=== PATIENT | female | born 1945 | race Caucasian/White ===

== ENCOUNTER 2017-02-10 18:02 | Emergency (ER) | payer OTHER, MEDICARE ==
[~2017-02-10] VITALS: Ht 165.1 cm; Wt 86.0 kg
[~2017-02-10 18:02] MED LIST: ASPI81TA21 PO; CIPR-255 PO; FLEC50TA20 PO; LEVO50TA PO; METR-163 PO
[2017-02-10 18:23] VITALS: Ht 165.1 cm; Wt 86.0 kg
[2017-02-10] MEDS ORDERED: CYAN100020 PO (18:37)
[2017-02-10 19:13] VITALS: BP 137/77; PULSE 60; TEMP 36.9; O2SAT 100
--- NOTE | 2017-02-11 22:24 | EMERGENCY ROOM VISIT NOTE ---
ED Visit Note First contact with patient: 18:29 Chief Complaint: I split open my right leg. History of Present Illness: Ms. Eason is a 71-year-old white female who ambulates into the ED complaining of a laceration to the right lower leg. Patient was reported less than an hour ago she was attempting to get in her car in a parking lot. The car next to her parked exceptionally close and she had to squeeze in the door. When she did she struck her right lower leg on the door and sustained a laceration. She did control bleeding but did not wash the wound prior to arrival at the hospital. Currently she describes a sharp throbbing pain in the area of her laceration. She rates her discomfort 7/10. Her pain is nonradiating. Her pain worsens with palpation. She has not identified any alleviating factors related to the pain. She has not taken any medications for pain prior to arrival at the hospital. She denies any associated symptoms including knee pain, bony lower leg pain, ankle pain, leg/foot weakness/numbness/tingling. Review of Systems: As noted above in history of present illness. Past Medical History: Atrial fibrillation, melanoma, asthma, bronchitis, pneumonia, diverticulitis, kidney stones, hypothyroidism, status post tonsillectomy, appendectomy and surgical repair of the left arm fracture. Current Medications: Vitamins, flecainide, Synthroid, Ecotrin. Allergies to Medications: Bacitracin, hyoscyamine, ibuprofen, latex, Aleve, baclofen, latex. Social History: Patient is currently employed; she feels safe in her home environment; she denies tobacco and alcohol use. Tetanus Immunization Status: Patient reports up-to-date. Physical Examination: Vital Signs: Date Time Temp Pulse Resp B/P Pulse Ox O2 Delivery O2 Flow Rate FiO2 02/10/17 19:13 36.9 60 18 137/77 100 02/10/17 19:07 60 18 137/77 100 Room Air 02/10/17 18:23 36.9 64 18 135/74 99 Room Air GENERAL: 71-year-old female in mild distress due to pain, nontoxic-appearing, afebrile and hemodynamically stable. NEUROLOGICAL: Awake, alert and oriented to person, place and time. Answering questions appropriately and following commands. Normal gait. Good hand eye coordination. No focal motor or sensory deficits. SKIN: Warm, dry and pink. Right Lower Leg: Over the distal half of the leg the patient has a U-shaped skin tear laceration that is superficial measuring approximately 4 cm in length. No active bleeding. RIGHT LOWER EXTREMITY: No gross bony deformity. No tenderness throughout the knee, tibia or ankle. Mild tenderness over her laceration. Full range of motion in flexion and extension of the knee and plantar flexion and dorsiflexion of the ankle. Throughout the foot the skin was warm and pink and capillary refill is brisk. She is able to distinguish light sensations through all dermatomes. ED Course: Patient is assessed as noted above. Wound Repair: Complexity: Basic Verbal consent was obtained after the risks and benefits were explained. The skin was prepped with betadine and a sterile field set. The wound was explored for foreign bodies and none found. Copious irrigation was performed using sterile saline. With direct pressure the bleeding subsided. Debridement was not performed. The wound edges were approximated using Steri-Strips. Hemostasis and excellent approximation was achieved. Dry sterile dressing applied. No complications and the patient tolerated the procedure well. Patient was educated about tonight's findings and instructed on she treatment plan; she verbalizes understanding and agreement with this plan. Clinical Impression: Laceration of the skin tear right lower leg. Disposition: Patient discharged home in stable condition; prior to departure he was reassessed and subjectively reported pain free. Plan: Comfort measures, wound care, and signs of infection were discussed with the patient. Patient was encouraged to follow-up with personal physician or return emergency department for any signs of infection or any new/concerning symptoms.
== END 2017-02-10 19:14 | disposition home or self-care (01) ==
LOC: C.EDB 18:03 → C.EDD 19:14
DX: S81.801A Unspecified open wound, right lower leg, initial encounter (principal); W22.8XXA Striking against or struck by other objects, initial encounter

== ENCOUNTER → 2017-04-13 | Outpatient (CLI) | payer OTHER, MEDICARE ==
[~2017-04-13] MED LIST changes: -CIPR-255 PO; +CYAN100020 PO; -METR-163 PO
== END | disposition home or self-care (01) ==
LOC: C.PAPS 15:52
PROVIDERS: ATTEND Obstetrics & Gynecology
DX: Z12.4 Encounter for screening for malignant neoplasm of cervix (principal)

== ENCOUNTER → 2017-05-08 | Outpatient (CLI) | payer OTHER, MEDICARE ==
--- NOTE | 2017-05-08 11:13 | DIAGNOSTIC IMAGING REPORT ---
MRI LEFT SHOULDER NO CONTRAST CLINICAL HISTORY: M25.512 left shoulder pain COMPARISON STUDY: No previous studies for comparison. FINDINGS: Imaging was performed in the paracoronal sagittal and axial planes. There are no areas of marrow replacement to indicate neoplasm. There are no areas of marrow replacement to indicate occult fracture or bone bruise. There is no evidence of rotator cuff tear. There are moderately advanced arthritic changes present within the glenohumeral joint with joint space narrowing cartilaginous loss and osteophyte formation. There is equivocal loose body within the inferior joint. There is no evidence of bicipital tendon subluxation, or tear. IMPRESSION: 1. 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 No evidence of rotator cuff tear. Electronically signed by: Junaid Luong M.D. 05/08/2017 11:12 AM Dictated Date/Time: 05/08/2017 11:09 AM
== END | disposition home or self-care (01) ==
LOC: C.MRI 09:22
PROVIDERS: ATTEND Orthopaedic Surgery Sports Medicine
DX: M25.512 Pain in left shoulder (principal); M19.012 Primary osteoarthritis, left shoulder

== ENCOUNTER → 2017-05-12 | Outpatient (CLI) | payer OTHER, MEDICARE ==
[2017-05-12 10:58] LABS: ALT/SGPT 21 U/L (12-78); AST/SGOT 14 U/L (15-37); BLOOD UREA NITROGEN 15 mg/dl (7-18); BUN/CREATININE RATIO 17.7 (10-20); CALCIUM 9.1 mg/dl (8.5-10.1); CARBON DIOXIDE 29 mmol/L (21-32); CHLORIDE 106 mmol/L (98-107); CREATININE 0.86 mg/dl (0.60-1.20); GLUCOSE 79 mg/dl (70-99); POTASSIUM 3.8 mmol/L (3.5-5.1); SODIUM 141 mmol/L (136-145)
[2017-05-12 11:09] LABS: ALKALINE PHOSPHATASE 110 U/L (45-117); CHOLESTEROL 226 mg/dl (0-200); CHOLESTEROL/HDL RATIO 3.3; HDL CHOLESTEROL 68 mg/dl; LDL CHOLESTEROL CALCULATED 141 mg/dl; TRIGLYCERIDES 85 mg/dl (0-150); VERY LOW DENSITY LIPOPROT CALC 17 mg/dl
--- NOTE | 2017-05-19 09:55 | CODING QUERY MEDICAL NECESSITY ---
SUPPORTING DIAGNOSIS NEEDED A supporting diagnosis is required for the test/procedure performed on this patient in order for us to be reimbursed by the patient's insurance. Please provide a supporting diagnosis for the following test/procedure listed below next to the test name along with your signature. *If there is no additional diagnosis for this patient that would support the following test/procedure please document that below next to the test/procedure. Test(s)/Procedure(s) that require a supporting diagnosis: * VITAMIN B12 DIAGNOSIS: * VITAMIN D, 25- HYDROXY DIAGNOSIS: Provider Signature: Date: Thank you Elena Barrett [employer] Once completed, please kindly fax back to [phone] For questions please call [phone]
== END | disposition home or self-care (01) ==
LOC: C.LAB 08:54
PROVIDERS: ATTEND Internal Medicine
DX: E78.5 Hyperlipidemia, unspecified (principal); E53.8 Deficiency of other specified B group vitamins; E55.9 Vitamin D deficiency, unspecified

== ENCOUNTER → 2017-05-20 | Outpatient (CLI) | payer OTHER, MEDICARE ==
--- NOTE | 2017-05-20 16:08 | MAMMOGRAPHY REPORT ---
BILATERAL DIGITAL SCREENING MAMMOGRAM WITH CAD: 05/20/2017 CLINICAL HISTORY: Routine screening. Patient has no complaints. TECHNIQUE: Bilateral CC and MLO views were obtained. Current study was also evaluated with a Computer Aided Detection (CAD) system. COMPARISON: Comparison is made to exams dated: 04/17/2016 mammogram, 03/22/2015 mammogram, 03/20/2014 m ammogram, 03/11/2013 mammogram, 03/02/2012 mammogram, and 03/04/2011 mammogram - [facility] enter. BREAST COMPOSITION: There are scattered areas of fibroglandular density in both breasts. 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 A few other scattered and grouped stable microcode calcifications bilaterally. No new suspicious mass, architectural distortion or cluster of microcalcifications is seen. IMPRESSION: ACR BI-RADS CATEGORY 1: NEGATIVE There is no mammographic evidence of malignancy. A 1 year screening mammogram is recommended. The pa tient will receive written notification of the results. Approximately 10% of breast cancers are not detected with mammography. A negative mammographic report should not delay biopsy if a clinically suggestive mass is present. Stephanie Moore M.D. ay/:05/20/2017 14:54:43 Production Engineer: Dee HOWELL)(Abdoulaye)(BD), [facility] letter sent: Normal 1/2 BI-RADS Code: ACR BI-RADS Category 1: Negative
== END | disposition home or self-care (01) ==
LOC: C.MAMM 14:23
PROVIDERS: ATTEND Obstetrics & Gynecology
DX: Z12.31 Encounter for screening mammogram for malignant neoplasm of breast (principal)

== ENCOUNTER → 2017-06-11 | Outpatient (CLI) | payer OTHER, MEDICARE ==
--- NOTE | 2017-06-11 09:29 | DIAGNOSTIC IMAGING REPORT ---
RIGHT HIP UNILATERAL 2 VIEWS CLINICAL HISTORY: 72 years-old Female presenting with RIGHT LEG PAIN Right. TECHNIQUE: Frontal and lateral views of the right hip were obtained. COMPARISON: Correlation made to CT of the abdomen and pelvis from September 11, 2016. FINDINGS: Right hip joint congruent. No significant degenerative change. No acute fracture or malalignment. Visualized portions of the pelvis unremarkable. IMPRESSION: 1. No acute osseous injury of the right hip. Electronically signed by: Alexander Orellana M.D. 06/11/2017 9:28 AM Dictated Date/Time: 06/11/2017 9:25 AM
== END | disposition home or self-care (01) ==
LOC: C.RADBC 09:10
PROVIDERS: ATTEND Physician Assistant Medical
DX: M79.604 Pain in right leg (principal)

== ENCOUNTER → 2017-06-11 | Outpatient (CLI) | payer OTHER, MEDICARE ==
--- NOTE | 2017-06-11 12:03 | DIAGNOSTIC IMAGING REPORT ---
RIGHT VENOUS DOPP LOWER EXT UNILAT CLINICAL HISTORY: 72 years-old Female presenting with M79.606 Acute leg pain Right. TECHNIQUE: Real-time grayscale and color and spectral Doppler ultrasound imaging of the veins of the right lower extremity was performed. Compression and augmentation were also utilized. COMPARISON: None. FINDINGS: Right: Common femoral vein: Patent. Femoral vein: Patent. Greater saphenous vein: Patent. Popliteal vein: Patent. Calf veins: Patent. Other: None. IMPRESSION: No evidence of deep venous thrombosis. Electronically signed by: Alexander Orellana M.D. 06/11/2017 12:01 PM Dictated Date/Time: 06/11/2017 12:00 PM
== END | disposition home or self-care (01) ==
LOC: C.ULTR 10:07
PROVIDERS: ATTEND Physician Assistant Medical
DX: M79.604 Pain in right leg (principal)

== ENCOUNTER → 2017-08-17 | Outpatient (CLI) | payer OTHER, MEDICARE ==
--- NOTE | 2017-08-17 15:21 | DIAGNOSTIC IMAGING REPORT ---
R LOWER EXTREMITY WITHOUT CT DOSE: 603.43 mGycm HISTORY: Mass R22.41 Thigh lump, right Thursday's are good (08/11 only one to avoid TECHNIQUE: Multiaxial CT images of the right thigh were performed and reformatted in the sagittal and coronal plane without the use of contrast. A dose lowering technique was utilized adhering to the principles of ALARA. COMPARISON: 09/11/2016 FINDINGS: No fracture or dislocation. Soft tissues are unremarkable. All major muscle bundles are unremarkable. Density characteristics of the subcutaneous fat are within normal limits. No abnormal mass or collection is appreciated. No abnormal adenopathy. Osseous structures are unremarkable. IMPRESSION: Negative study The above report was generated using voice recognition software. It may contain grammatical, syntax or spelling errors. Electronically signed by: Ronen Weiss M.D. 08/17/2017 3:20 PM Dictated Date/Time: 08/17/2017 3:15 PM
== END | disposition home or self-care (01) ==
LOC: C.CTS 14:37
PROVIDERS: ATTEND Internal Medicine
DX: R22.41 Localized swelling, mass and lump, right lower limb (principal)

== ENCOUNTER → 2017-10-27 | Outpatient (CLI) | payer OTHER, MEDICARE ==
[2017-10-27 13:48] LABS: BASO % 0.4 %; BASO ABS # 0.03 K/uL (0-0.2); COMPLETE YES; EOS % 1.1 %; HEMATOCRIT 49.3 % (37-47); IG% 0.1 %; LYMPH % 30.2 %; LYMPH ABS # 2.24 K/uL (1.2-3.4); MEAN CORPUSCULAR HEMOGLOBIN 29.6 pg (25-34); MEAN CORPUSCULAR HGB CONC 32.9 g/dl (32-36); MEAN PLATELET VOLUME 10.9 fL (7.4-10.4); NEUT % 59.2 %; PLATELET COUNT 305 K/uL (130-400); RED BLOOD COUNT 5.48 M/uL (4.2-5.4); WHITE BLOOD COUNT 7.42 K/uL (4.8-10.8)
[2017-10-27 14:00] LABS: ALT/SGPT 18 U/L (12-78); AST/SGOT 11 U/L (15-37); BLOOD UREA NITROGEN 16 mg/dl (7-18); BUN/CREATININE RATIO 17.5 (10-20); CALCIUM 9.6 mg/dl (8.5-10.1); CARBON DIOXIDE 30 mmol/L (21-32); CHLORIDE 104 mmol/L (98-107); CREATININE 0.93 mg/dl (0.60-1.20); GLUCOSE 92 mg/dl (70-99); POTASSIUM 3.9 mmol/L (3.5-5.1); SODIUM 137 mmol/L (136-145)
[2017-10-27 14:03] LABS: ALKALINE PHOSPHATASE 121 U/L (45-117)
== END | disposition home or self-care (01) ==
LOC: C.LABBC 10:35
PROVIDERS: ATTEND Nurse Practitioner Adult Health
DX: R10.13 Epigastric pain (principal); R11.0 Nausea

== ENCOUNTER → 2017-11-04 | Outpatient (CLI) | payer OTHER, MEDICARE ==
[~2017-11-04] MED LIST changes: +OPTIRAY 320 IV PRN
--- NOTE | 2017-11-04 12:20 | DIAGNOSTIC IMAGING REPORT ---
ABDOMEN AND PELVIS CT WITH IV AND ORAL CONTRAST CT DOSE: 627.66 mGy.cm HISTORY: K57.92 Acute tojnebphffmtsdZ15.30 Abdominal pain, lower TECHNIQUE: Multiaxial CT images of the abdomen and pelvis were performed following the use of intravenous and oral contrast. A dose lowering technique was utilized adhering to the principles of ALARA. COMPARISON STUDY: Abdomen and pelvis CT 09/11/2016. FINDINGS: Extensive colonic diverticulosis. Mild thickening of the mid sigmoid colon without surrounding fat stranding. Therefore, this favors muscular hypertrophy. No pericolonic fat stranding to suggest acute diverticulitis at this time. No evidence for bowel obstruction. The appendix is not identified and is likely surgically absent. A 2 cm diverticulum at the second portion of the duodenum. The liver, gallbladder, pancreas, spleen, and adrenal glands, are unremarkable. Small bilateral peripelvic renal cysts. No hydronephrosis. The kidneys enhance normally. No retroperitoneal lymphadenopathy. The uterus and ovaries are unremarkable. Bladder is completely decompressed which limits evaluation. There are suggestion of mild fat stranding surrounding the bladder. The lung bases are clear. IMPRESSION: 1. Extensive colonic diverticulosis. No CT evidence for acute diverticulitis at this time. 2. No evidence for bowel obstruction. 3. Bladder is completely decompressed which limits evaluation. However, there is suggestion of mild fat stranding surrounding the bladder. This may represent a cystitis. Recommend correlation with urinalysis. Electronically signed by: Thompson Moses M.D. 11/04/2017 12:19 PM Dictated Date/Time: 11/04/2017 12:11 PM
== END | disposition home or self-care (01) ==
LOC: C.CTS 09:12
PROVIDERS: ATTEND Nurse Practitioner Adult Health
DX: R10.30 Lower abdominal pain, unspecified (principal); K57.30 Diverticulosis of large intestine without perforation or abscess without bleeding; R93.41 Abnormal radiologic findings on diagnostic imaging of renal pelvis, ureter, or bladder; Z87.19 Personal history of other diseases of the digestive system

== ENCOUNTER → 2017-11-05 | Outpatient (CLI) | payer OTHER, MEDICARE ==
[~2017-11-05] MED LIST changes: -OPTIRAY 320 IV PRN
[2017-11-05 14:57] LABS: MANUAL MICROSCOPIC REQUIRED? NO; REVIEW REQ? YES; URINE APPEARANCE TURBID (CLEAR); URINE COLOR DK YELLOW; URINE EPITHELIAL CELL AUTO >30 /lpf (0-5); URINE NITRITE NEG (NEG); URINE SPECIFIC GRAVITY 1.038 (1.000-1.030); UROBILINOGEN NEG (NEG)
[2017-11-05 14:59] LABS: URINE BILIRUBIN NEG (NEG)
[2017-11-05 15:13] LABS: URINE MUCUS PRESENT (NONE PRSENT)
== END | disposition home or self-care (01) ==
LOC: C.LABBC 11:03
PROVIDERS: ATTEND Nurse Practitioner Adult Health
DX: R10.30 Lower abdominal pain, unspecified (principal)

== ENCOUNTER → 2017-11-27 | Outpatient (CLI) | payer OTHER, MEDICARE ==
[~2017-11-27] MED LIST changes: +ASPI-319 PO; -ASPI81TA21 PO
--- NOTE | 2017-11-27 15:57 | DIAGNOSTIC IMAGING REPORT ---
R SHOULDER MIN 2 VIEWS ROUTINE CLINICAL HISTORY: 72 years-old Female presenting with PAIN. TECHNIQUE: Internal rotation, external rotation, and Grashey views of the right shoulder were obtained. COMPARISON: None. FINDINGS: No acute fracture or malalignment. Glenohumeral and acromioclavicular joints congruent. No deformity of the humeral head. Possible small osteophyte at the inferior humeral head. No significant degenerative change of the acromioclavicular joint. No radiographic soft tissue abnormality. Visualized portion of the right hemithorax normal. IMPRESSION: No acute osseous injury of the right shoulder. Possible mild degenerative changes of the glenohumeral joint. Electronically signed by: Alexander Orellana M.D. 11/27/2017 3:56 PM Dictated Date/Time: 11/27/2017 3:54 PM
[2017-11-27 16:41] LABS: BASO % 0.4 %; BASO ABS # 0.03 K/uL (0-0.2); EOS % 1.1 %; EOS ABS # 0.09 K/uL (0-0.5); HEMOGLOBIN 15.1 g/dL (12.0-16.0); IG# 0.01 K/uL (0.00-0.02); LYMPH % 34.8 %; LYMPH ABS # 2.75 K/uL (1.2-3.4); MEAN CELL VOLUME 89.5 fL (80-100); MEAN CORPUSCULAR HGB CONC 33.6 g/dl (32-36); MEAN PLATELET VOLUME 10.1 fL (7.4-10.4); MONO ABS # 0.71 K/uL (0.11-0.59); NEUT % 54.6 %; NEUT ABS # 4.31 K/uL (1.4-6.5); PLATELET COUNT 299 K/uL (130-400); RED CELL DISTRIBUTION WIDTH CV 14.5 % (11.5-14.5); RED CELL DISTRIBUTION WIDTH SD 47.1 fL (36.4-46.3)
== END | disposition home or self-care (01) ==
LOC: C.RADBC 15:11
PROVIDERS: ATTEND Physician Assistant Medical
DX: M25.511 Pain in right shoulder (principal); R74.8 Abnormal levels of other serum enzymes; R79.89 Other specified abnormal findings of blood chemistry

== ENCOUNTER → 2017-12-06 | Outpatient (CLI) | payer OTHER, MEDICARE ==
[~2017-12-06] MED LIST changes: -ASPI-319 PO; +ASPI81TA21 PO
--- NOTE | 2017-12-07 06:20 | PAP/PSG TECHNICIAN REPORT ---
[facility] Electrical Electronics Technician Polysomnogram Report Study name: None Report date: 12/07/2017 Study date: 12/06/2017 Referring Physician: Samantha Squires PA-C Name: ENOCH PADGETT Interpreting Physician: Ananth Vogt D.O. Date of : 1945 Electrical Electronics Technician: Tae Guzmán RPSGT. Sex: Female Age: 72 StudyType: PSG Weight: 194 lbs 34 cm Height: 72 years, Height 5' 6" Neck Circum: BMI: 31.31 Medications: OMEPRAZOLE 20 MG, FLECAINIDE ACETATE 50 MG, LEVOTHYROXINE SODIUM 50 MCG, ASPIRIN 81 MG, Patient History PATIENT HAS HISTORY OF A-FIB, WITNESSED APNEAS AND EXCESSIVE DAYTIME SLEEPINESS. SHE IS HERE TODAY FOR AN EVALUATION FOR MAYKEL. ESS = 14 RM 8 Parameters Monitored NPSG: E1-M2, E2-M1, Fp1-M2, Fp2-M1, F3-M2, F4-M2, F4-M1, C3-M2, C4-M2, C4-M1, O1-M2, O2-M2, O2-M1, T3-M2, T4-M1, P3-M2, P4-M1, CHIN1, CHIN2, HR, EKG, Legs, PFLOW, SNOR, FLOW, CFLOW, Tidal Volume, THOR, ABDO, SpO2, PLTH, CPRESS, ETCO2 Wave, ETCO2, pH Sleep Architecture Sleep Stages Time at Lights Off 8:59:21 PM STAGES Time (min.) TST (%) Time at Lights On 5:57:21 AM Wake 133.0 -- Total Recording Time (TRT) 538.50 min. N1 14.0 3 Total Sleep Period (TSP) 514.0 min. N2 228.0 56 Total Sleep Time (TST) 405.0min. N3 44.5 11 Awake Time 133.5 min. REM 118.5 29 Wake after Sleep Onset 114.5 min. Sleep Efficiency (SE) 75 % Sleep Onset Latency (RAFA) 18.5 min. Number of Stage 1 Shifts None Awakenings 17 Stage Changes 70 Number of REM periods 6 REM 118.5 29 REM Latency 106.5 min. NREM 286.5 71 Body Position Analysis Supine Right Left Side Prone Vertical Total Sleep Time (min.) 377.6 0.0 121.0 121.00 0.0 0.0 Total Sleep Time (%) 70% 0% 30% 30 0% N/A% Total Sleep Time REM (min.) 78.5 0.0 40.0 None 0.0 0.0 Total Sleep Time NREM (min.) 205.5 0.0 81.0 None 0.0 0.0 Intermittent Wake (min.) 93.6 0.0 39.4 None 0.0 0.0 Total Sleep Period (%) 70% None None None None None Arousals Myoclonus (PLM) * Events Count Index Events Count Index Spontaneous 35 5 Events Awake (PLMW) 71 32.0 Respiratory 6 0.9 Events Asleep w/ Arousal (PLMA) 1 0.1 PLM 1 0 Events Asleep w/o Arousal (PLMS) 13 1.9 Snoring 11 2 Total Asleep 14 2.1 Total 52 8 Total 85 9 Respiratory Analysis * CA OA MA CH H RERA Total Count 0 0 0 0 73 3 73 Index 0.0 0.0 0.0 0 10.8 0 11.3 Mean Duration 0.0 0.0 0.0 0.00 25.3 18.5 25.0 Longest Duration 0.0 0.0 0.0 0.00 0.0 20.7 56.0 Respiratory Event Summary Total Supine ~Supine Right Left Prone REM NREM Apneas Count 0 0 0 N/A 0 N/A 0 0 Index 0.0 0 0 N/A 0.0 N/A 0 0 Hypopneas (4% Desat) Count 73 68 5 N/A 5 N/A 64 9 Index 10.8 14.4 2 N/A 2.5 N/A 32.4 1.9 Apneas & All Hypopneas Count 73 68 5 N/A 5 N/A 64 9 Index 10.8 14 2 N/A 2 N/A 32.4 1.9 Respiratory Events (Manager Emergency Department+All Hyp+RERA) Count 73 70 6 N/A 6 N/A 64 9 Index 11.3 15 3 N/A 3.0 N/A 32.9 2.3 Respiratory Related Arousal Count 6 70 1 N/A 1 N/A 3 3 Index 0.9 1 0 N/A 0 N/A 2 1 Snoring Analysis Supine Right Left Prone REM NREM Total Snore duration 14.0 min Snores count 408 N/A 318 N/A 301 425 726 Snore mean duration 1.2 Sec Snores index 86 N/A 158 N/A 152.4 89.0 107.6 TST with snoring (%) 3.5% Desaturation Event Summary: Minimum %SpO2 Event Count Mean/Min/Max Duration(sec.) Desaturation Index % Time In Bed > 90 73 35.7 / 13.3 / 80.6 8.5 96.5 86 - 90 1 14.9 / 14.9 / 14.9 4.0 2.8 81 - 85 0 N/A 0.0 0.6 76 - 80 0 N/A 0.0 0.1 71 - 75 0 N/A 0.0 0.0 66 - 70 0 N/A 0.0 0.0 61 - 65 0 N/A 0.0 0.0 56 - 60 0 N/A 0.0 0.0 51 - 55 0 N/A 0.0 0.0 < 50 0 N/A 0.0 0.0 Total REM NREM Awake <50% 0.0 min. 0.0 min. 0.0 min. 0.0 min. 51 - 60% 0.1 min. 0.0 min. 0.0 min. 0.1 min. 61 - 70% 0.0 min. 0.0 min. 0.0 min. 0.0 min. 71 - 80% 0.3 min. 0.3 min. 0.0 min. 0.0 min. 81 - 90% 17.9 min. 16.7 min. 0.2 min. 1.0 min. 91 - 100% 513.1 min. 101.5 min. 286.3 min. 125.4 min. Average 94 93 94 93 Minimum SpO2 60 78 89 60 Desaturation Event Index 8.3 31.9 1.9 0.9 # Desat. Events below 89% 31 31 N/A N/A Time(%) with Saturation below 89% 1.9 1.8 0.0 0.1 Time(min.) with Saturation below 89% 10.0 9.7 0.0 0.3 Time (mins) REM (mins) NREM (mins) % of TST SpO2 Below 90% 44 42 N2 3.1 SpO2 Below 88% 19 0 0 2 Heart Rate Analysis Min (bpm) Max (bpm) Average (bpm) Awake 49 73 57 NREM 47 68 55 REM 47 69 54 Overall 47 69 55 Supplemental O2 Values Minimum O2 level: None Value Start Time End Time Electrical Electronics Technician Comments Mrs. Avina slept in the left and supine positions. PAC's noted. Leg movements noted. No bruxism noted. Snoring was noted and scored as a 2 on a scale of 1 through 5. (0=no snoring, 5=snoring loud enough to be heard through a closed door or down the liu way) Mrs. Padgett awoke to use the restroom 1 time during the night. Mrs. Padgett stated I slept as well as I do when I am in my own bed. The final report will be interpreted and signed by a sleep physician. The completed physician report will then be placed in the patient medical record. Therapy (cm H2O) 0 TIB (min.) 538.0 TST (min.) 405.0 Sleep Onset (min.) 18.5 REM Onset From Sleep (min.) 106.5 Sleep Efficiency % 75 Wakefulness (%) 25 Wakefulness (min.) 133.5 NREM 1 (%) 3 NREM 1 (min.) 14.0 NREM 2 (%) 56 NREM 2 (min.) 228.0 NREM 3 (%) 11 NREM 3 (min.) 44.5 REM (%) 29 REM (min.) 118.5 # Arousals 52 Arousal Index 8 # Snore 726 Snore Index 107.6 AHI 10.8 AHI Supine 14 AHI Non-Supine 2 NREM AHI 1.9 REM AHI 32.4 RDI 11.3 # Obstructive Apnea 0 # Central Apnea 0 # Mixed Apnea 0 # Hypopneas 73 RERAs 3 Total Respiratory Events 76 Time Below SpO2 89% (min.) 9.7 Mean NREM SpO2 (%) 94 Mean REM SpO2 (%) 93 Mean Sleep SpO2 (%) 94 Min NREM SpO2 (%) 89 Min REM SpO2 (%) 78 Position Supine (min.) 377.6 Position Non-supine (min.) 121.0 LM Index Sleep 2.1 LM Index NREM 1.3 LM Index REM 4.1 Mean Heart Rate (bpm) 55 Min Heart Rate (bpm) 47
--- NOTE | 2017-12-08 15:50 | Sleep Study ---
Sleep Study Report Date of Service: 12/06/2017 Sleep Study Report CLINICAL DATA: The patient is a 72-year-old female with a BMI of 31.3. She has a history of atrial fibrillation. Her symptoms include disturbed nocturnal sleep, observed apneas, and excessive daytime tiredness. Her [place] Sleepiness Scale score was 14. She is referred by Samantha Squires PA-C for a diagnostic polysomnography. SLEEP ARCHITECTURE: The total sleep period was 514 minutes. The total sleep time was 405 minutes. The sleep efficiency was moderately reduced to 75 percent. The sleep latency was top normal at 18.5 minutes. Wake after sleep onset was increased to 114.5 minutes. The REM latency was 106.5 minutes. Sleep consisted of stage N1 3 percent, stage N2 56 percent, stage N3 11 percent, stage REM 29 percent. AROUSAL DATA: The patient had a total of 52 arousals including 35 spontaneous arousals, 6 respiratory arousals, 1 PLM arousal, and 11 snoring arousals. The arousal index was 8. PLM DATA: The patient had a total of 14 periodic limb movements of sleep for a PLM index of 2.1. There was only 1 arousal associated with limb movements for a PLM arousal index of 0.1. EKG: The underlying cardiac rhythm appeared to be sinus. It was difficult at times to identify P-waves. PACs were noted. I cannot entirely exclude brief areas of atrial fibrillation. The cardiac rates 47-69 beats per minute with an average of 55 beats per minute. RESPIRATORY DATA: The patient had a total of 73 respiratory events, all hypopneas. Hypopneas were scored according to the 4 percent desaturation rule. The mean duration of the hypopneas was 25.3 seconds. She also had 3 RERAs. The apnea-hypopnea index was mildly elevated at 10.8 events per hour. This reflects mild obstructive sleep apnea. OXIMETRY DATA: The average saturation for the night was 94 percent. The minimum saturation recorded was 60 percent. This clearly was artifactual. The true minimum saturation was 79 percent. There was a total of 10 minutes with saturations less than 89 percent. MACHINE TRACER COMMENTS: The patient slept in the left and supine positions. PACs noted. Leg movements noted. No bruxism noted. Snoring was noted and scored as a 2 on a scale of 1 through 5. The patient awaken to use the restroom 1 time during the night. IMPRESSIONS: 1. Mild obstructive sleep apnea COMMENTS: The patient had a decreased sleep efficiency. This was mainly related to an episode of wake from 2:12 a.m. until 3:38 a.m.. Otherwise her sleep was well consolidated. She had mild sleep apnea. The events occurred mainly during REM sleep. The REM apnea-hypopnea index was elevated at 32.4. These 2 episodes were also associated with decreases in oxygen saturations. The patient has modest symptoms and there is a history of atrial fibrillation. Thus treatment would be advised. RECOMMENDATIONS: 1. It is suggested that the patient be treated with nasal CPAP therapy. This could be accomplished either by referral to the Sleep Lab for an in-lab CPAP titration study, or the alternative being treatment with auto CPAP. 2. Weight loss is advised in light of the elevation of body mass index at 31.3. 3. If possible the patient should avoid sleeping in the supine position. During this study she spent much of the night supine and the apnea-hypopnea index supine was 14. Typically there is more sleep apnea and snoring in the supine position. Copies To 1: Ananth Vogt DO; Samantha Squires PAC
== END | disposition home or self-care (01) ==
LOC: C.NEUR 20:00
PROVIDERS: ATTEND Physician Assistant Medical
DX: G47.33 Obstructive sleep apnea (adult) (pediatric) (principal); G47.10 Hypersomnia, unspecified

== ENCOUNTER → 2018-06-14 | Outpatient (CLI) | payer OTHER ==
[~2018-06-14] MED LIST changes: +ASPI-319 PO; -ASPI81TA21 PO
--- NOTE | 2018-06-14 11:44 | DIAGNOSTIC IMAGING REPORT ---
KUB HISTORY: Follow-up study in a patient with history of nephrolithiasis N20.0 [id number] COMPARISON: CT abdomen and pelvis 11/04/2017 FINDINGS: The bowel gas pattern is non-obstructive. Round calcification of the left upper abdomen, 10 mm suggests peripherally calcified splenic arterial aneurysm. Calcifications of the pelvis suggest phleboliths. There is no organomegaly. No renal calculi. No ureteral calculi. No pneumoperitoneum or pneumatosis. No fracture. Degenerative changes of the spine, pelvis and hips. IMPRESSION: 1. No renal or ureteral calculi identified. 2. Nonobstructive bowel gas pattern. 3. 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 Electronically signed by: Thad Flynn M.D. 06/14/2018 11:43 AM Dictated Date/Time: 06/14/2018 11:42 AM
== END | disposition home or self-care (01) ==
LOC: C.RAD 11:07
PROVIDERS: ATTEND Urology
DX: N20.0 Calculus of kidney (principal); I72.8 Aneurysm of other specified arteries

== ENCOUNTER → 2018-06-15 | Outpatient (CLI) | payer OTHER | END | disposition home or self-care (01) | LOC: C.LABSPEC 12:26 | PROVIDERS: ATTEND Urology | DX: R82.71 Bacteriuria (principal) ==

== ENCOUNTER → 2018-07-06 | Outpatient (CLI) | payer OTHER ==
[~2018-07-06] MED LIST changes: +OPTIRAY 320 IV PRN
--- NOTE | 2018-07-06 10:31 | DIAGNOSTIC IMAGING REPORT ---
ABD WITH IV AND ORAL CONT (CT) CLINICAL HISTORY: 73 years-old Female presenting with I72.8 Splenic artery aneurysm. TECHNIQUE: Multidetector CT of the abdomen was performed after the administration of oral and intravenous contrast. IV contrast: 93 mL of Optiray 320. A dose lowering technique was used consistent with the principles of ALARA (as low as reasonably achievable). COMPARISON: 11/04/2017. CT DOSE (mGy.cm): The estimated cumulative dose is 280.67 mGy.cm. FINDINGS: Contact Lens Curve Grinder topogram: Unremarkable. Lung bases: Minimal basilar opacities, likely atelectasis. Multichamber enlargement of the heart. No pericardial or pleural effusion. Liver: Normal morphology. No liver lesion allowing for the early phase of contrast. Hepatic veins not yet opacified. Otherwise patent hepatic vasculature. Conventional hepatic arterial anatomy. Biliary: No intrahepatic or extrahepatic biliary ductal dilatation. Fundal adenomyomatosis may be present. Gallbladder otherwise normal. Pancreas: Normal. Spleen: Normal. Adrenal glands: Normal. Kidneys and ureters: Normal. No hydronephrosis. Bowel: Diverticulosis of the descending colon. No bowel obstruction. Peritoneal cavity: No free fluid or intraperitoneal gas. Lymph nodes: No enlarged lymph nodes in the abdomen. Vasculature: Atherosclerosis of the normal caliber abdominal aorta. IVC patent. Redemonstration of the 8 mm splenic arterial aneurysm, which arises from the posterior aspect of the mid to distal splenic artery and opacifies with contrast (series 3 image 96). This is unchanged from prior. No new aneurysm. Splenic vein patent. Abdominal wall: Asymmetric breast parenchyma in the lower outer quadrant of the right breast (series 3 image 61). Musculoskeletal: Normal. IMPRESSION: 1. Stable subcentimeter splenic arterial aneurysm. 2. No acute intra-abdominal pathology. 3. Diverticulosis. 4. Asymmetric breast parenchyma in the lower outer quadrant of the right breast. Dedicated mammographic correlation recommended. Electronically signed by: Alexander Orellana M.D. 07/06/2018 10:29 AM Dictated Date/Time: 07/06/2018 10:21 AM
== END | disposition home or self-care (01) ==
LOC: C.CTS 09:00
PROVIDERS: ATTEND Internal Medicine
DX: I72.8 Aneurysm of other specified arteries (principal); K57.90 Diverticulosis of intestine, part unspecified, without perforation or abscess without bleeding; N64.9 Disorder of breast, unspecified

== ENCOUNTER 2023-10-17 12:57 | Inpatient (IN) ==
[2023-10-17] MEDS ORDERED: SODIUM CHLORIDE 0.9% 500 ML IV STA (13:29)
[2023-10-17 13:49] LABS: Basophils # (auto) 0.06 K/uL (0.00-0.20); Basophils % (auto) 0.6 %; Eosinophils # (auto) 0.06 K/uL (0.00-0.50); Eosinophils % (auto) 0.6 %; Hematocrit (blood only) 45.6 % (37.0-47.0); Hemoglobin 15.3 g/dl (12.0-16.0); Immature Granulocytes # (auto) 0.02 K/uL (0.01-0.20); Immature Granulocytes % (auto) 0.2 %; Lymphocytes # (auto) 2.07 K/uL (1.20-3.40); Lymphocytes % (auto) 22.2 %; Mean Corpuscular Hemoglobin 29.8 pg (25.0-34.0); Mean Corpuscular Hgb Conc 33.6 g/dL (32.0-36.0); Mean Corpuscular Volume 88.9 fL (80.0-100.0); Mean Platelet Volume 10.1 fL (9.4-12.4); Monocytes # (auto) 0.86 K/uL (0.11-0.59); Monocytes % (auto) 9.2 %; Neutrophils # (auto) 6.27 K/uL (1.40-6.50); Neutrophils % (auto) 67.2 %; Platelet Count 268 K/uL (130-400); RDW Standard Deviation 45.6 fL (36.4-46.3); Red Blood Count 5.13 M/uL (4.20-5.40); White Blood Count 9.34 K/ul (4.8-10.8)
--- NOTE | 2023-10-17 14:05 | XRay Report ---
XR chest 1V portable HISTORY: Dysrhythmia COMPARISON: Chest 05/15/2022. FINDINGS: The lungs are clear. The heart remains enlarged. Is left-sided dual-chamber pacemaker. No p leural effusions. No pneumothorax. Degenerative changes within the shoulders again noted. IMPRESSION: Stable cardiomegaly. Otherwise, no acute process within the chest. ACT 112: Negative or not required by law. Electronically signed by: Thompson Moses M.D. 10/17/2023 2:03 PM
--- NOTE | 2023-10-17 14:07 | Emergency Department Note ---
Impression & Plan Regular sinus tachycardia ED Provider Note NAME: ENOCH PADGETT AGE: 78 SEX: F : 1945 ARRIVES VIA: Walk-In INFORMANT: Patient, ED PROVIDER(S): Leticia Patrick MD CHIEF COMPLAINT: Tachycardia HPI: This is a 78-year-old female with history of A-fib on apixaban status post ablation x 2 presenting for tachycardia and shortness of breath. Patient has for the past 1+ week she noticed tachycardia into the 130s. She states she tried to call her cardiology with no response. She was then urged to come in by her 5 members for her persistent tachycardia, exertional dyspnea. She has no chest pain. She notes no nausea or vomiting. No fevers, chills sore throat. She notes no leg swelling. No history of heart failure. She also states that her [employer] pacemaker company called her about her tachycardia. ROS: See above HPI for pertinent positives & negatives. A total of 10 systems reviewed and were otherwise negative. PAST MEDICAL HISTORY: See Below PAST SURGICAL HISTORY: See Below FAMILY HISTORY: See Below SOCIAL HISTORY: See Below HOME MEDICATIONS: See Below ALLERGIES: See Below VITALS: See Below PHYSICAL EXAMINATION: General: resting comfortably in no acute distress Head: Normocephalic and atraumatic Eyes: Normal inspection, extraocular muscles intact Ear, nose, throat: Normal external exam Neck: Normal range of motion Respiratory: lungs clear to auscultation bilaterally Cardiovascular: Tachycardic regular rate/rhythm, no murmur GI: soft, nontender, no guarding or rebound Extremities: nontender, moves all extremities Neuro: The patient awake and alert, appropriately conversive, no focal deficits, symmetric faces Skin: Warm, dry, and intact MEDICAL DECISION MAKING: This is a 6-year-old female with history of A-fib on apixaban status post ablation x 2 presented with tachycardia shortness of breath. Patient is in what appears to be a sinus tachycardia, 130s to 150s. She has had ablations x 2 with a physician in [facility]. Otherwise patient notes no chest pain at this time. Patient will be reviewed here showing no acute abnormalities, no leukocytosis, anemia, D-dimer elevation, lateral disturbances, elevation of creatinine, LFT elevation. Negative troponin, negative TSH, negative D-dimer. Urinalysis reveals no UTI. Patient's COVID/flu negative. Chest Xray independently interpreted by me showing no pneumothorax, focal opacity, or pleural effusions. Patient given IV metoprolol without any improvement of her tachycardia. She patient is sinus tachycardia with unclear cause. At this time, will admit for further workup to help elucidate underlying cause. Patient is exertionally dyspneic as well. External records reviewed, cardiology note from 09/28/2023 showing patient had presented for breakthrough episodes of atrial flutter, less than 1% of total burden based on pacemaker interrogation at that time. Triage Nursing notes reviewed. Prior medical records reviewed Vital Signs: reviewed and remarkable for no significant abnormalities Differential diagnosis: PE, ACS, sepsis, metabolic encephalopathy ER treatment provided: See below Diagnostics interpreted by me: ECG: ECG independently interpreted by me with sinus tachycardia1, rate of 130, normal RI, normal QRS, normal QTc, no ST segment elevations consistent with STEMI criteria Cardiac Monitoring: An order was placed for continuous cardiac monitoring. The monitor shows a rate of 136 with sinus tachycardia rhythm Laboratory studies: As stated above and show below. Imaging studies: See below. Radiographic imaging was reviewed by myself Consultation(s): None Critical Care Note: I have personally spent 34 minutes of critical care time in the direct management of this patient. This includes bedside care, interpretation of diagnostic studies, and testing, discussion with consultants, patient, and family members, and other required patient management activities. This 34 minutes is in excess of all separately billable procedures. Past Med/Surg History Medical History A-fib Chronic anticoagulation Colon polyps Diverticulitis Duodenal diverticulum Esophageal dysmotility Family history of colon cancer History of nephrolithiasis Hyperlipidemia Macular degeneration Melanoma of skin Mild cognitive impairment Mitral regurgitation Obstructive sleep apnea Osteitis of symphysis pubis Osteopenia after menopause Pacemaker Thyroid goiter Vitamin B 12 deficiency Vitamin D deficiency Surgical History H/O arthroscopy of right knee H/O cardiac radiofrequency ablation H/O colonoscopy History of breast surgery S/P appendectomy S/P cardiac pacemaker procedure S/P tonsillectomy Status post ablation of atrial fibrillation Family History Mother Afib Colorectal cancer Dementia Father Stroke Afib Grandmother Breast cancer Aunt Breast cancer Denies family history of Ovarian cancer Prostate cancer Myocardial infarction Lung cancer Social History Smoking Status: Never smoker Tobacco Type: Cigarettes Age Started Using Tobacco: 19; Age Quit Using Tobacco: 34; packs per day: 0.5; Second Hand Exposure: No; Do You Dip or Chew Tobacco: No; Hx Alcohol Use: No Hx Substance Use: No Preferred Language: Monegasque Communication Ability: Effective Visual Impairment: Limited Hearing Ability: Normal Mri Technician Required: No marital status: Current Living Situation: Spouse current occupational status: retired How many Children do You have: 0 Feels Safe at Home: Yes Childhood Exposure to Second-Hand Smoke: No Diet: regular caffeine: No Dental Care, Regularly: Yes Physical Activity Frequency: Does not Exercise Seatbelt Use: always Sunscreen Use: No Assistive Devices: Glasses Allergies Allergies Allergy/AdvReac Type Severity Reaction Status Date / Time hyoscyamine Allergy Severe Hives Verified 10/06/23 10:55 nabumetone Allergy Severe Hives Verified 10/06/23 10:55 ibuprofen Allergy Intermediate HIVES Verified 10/06/23 10:55 latex Allergy Intermediate Rash Verified 10/06/23 10:55 bacitracin Allergy Unknown Unknown Verified 10/06/23 10:55 bee venom protein (honey bee) Allergy Unknown Unknown Verified 10/06/23 10:55 naproxen [From Aleve] Allergy Unknown Verified 10/06/23 10:55 polymyxin B Allergy Unknown Unknown Verified 10/06/23 10:55 Home Meds Home Medications Medication Instructions Recorded Confirmed apixaban 5 mg tablet (Eliquis) 5 mg PO Q12 01/09/19 10/06/23 cyanocobalamin (vitamin B-12) 1,000 mcg PO DAILY 01/09/19 10/06/23 1,000 mcg tablet cholecalciferol (vitamin D3) 25 1,000 unit PO BID 10/02/22 10/06/23 mcg (1,000 unit) tablet (Vitamin D3) mupirocin 2 % topical ointment 1 applic topical BID 05/06/23 10/06/23 metoprolol tartrate 25 mg tablet 25 mg PO BID 06/30/23 10/06/23 triamcinolone acetonide 0.1 % 1 applic topical DAILY PRN 06/30/23 10/06/23 topical cream Previous Rx's Medication Instructions Recorded levothyroxine 75 mcg tablet 75 mcg PO DAILY #90 tabs 11/07/22 Results & Data (ED) Vital Signs Vital Signs - 24 hr 10/17/23 12:59 10/17/23 13:34 10/17/23 13:34 Temperature 36.3 C L Temperature Source Temporal Artery Scan Pulse Rate 121 H Pulse Rate [Apical] 131 H Pulse Rhythm [Apical] Respiratory Rate 20 22 Blood Pressure 99/71 L Blood Pressure [Left Arm] 124/68 Blood Pressure Mean 80 Blood Pressure Mean [Left Arm] 86 Pulse Oximetry 98 97 97 Oxygen Delivery Method Room Air Room Air Room Air Sepsis Recent Fever Within 48 Hours No Sepsis New/Unexplained Change in Mental Status N/A Sepsis Action Taken by Nursing No Action Required 10/17/23 15:00 10/17/23 15:33 10/17/23 16:14 Temperature Temperature Source Pulse Rate 121 H 114 H Pulse Rate [Apical] 108 H Pulse Rhythm [Apical] Regular Respiratory Rate 18 Blood Pressure 101/80 Blood Pressure [Left Arm] 114/78 Blood Pressure Mean Blood Pressure Mean [Left Arm] 90 Pulse Oximetry 98 Oxygen Delivery Method Room Air Sepsis Recent Fever Within 48 Hours Sepsis New/Unexplained Change in Mental Status Sepsis Action Taken by Nursing 10/17/23 16:20 10/17/23 16:30 10/17/23 17:00 Temperature Temperature Source Pulse Rate Pulse Rate [Apical] 121 H 120 H 123 H Pulse Rhythm [Apical] Respiratory Rate 15 18 18 Blood Pressure Blood Pressure [Left Arm] 101/80 125/83 114/86 Blood Pressure Mean Blood Pressure Mean [Left Arm] 87 97 95 Pulse Oximetry 98 96 96 Oxygen Delivery Method Room Air Sepsis Recent Fever Within 48 Hours Sepsis New/Unexplained Change in Mental Status Sepsis Action Taken by Nursing Laboratory Data 10/17/23 13:35 10/17/23 13:35 Lab Results 10/17/23 10/17/23 10/17/23 Range/Units 13:35 14:35 14:38 WBC 9.34 (4.8-10.8) K/ul RBC 5.13 (4.20-5.40) M/uL Hgb 15.3 (12.0-16.0) g/dl Hct 45.6 (37.0-47.0) % MCV 88.9 (80.0-100.0) fL MCH 29.8 (25.0-34.0) pg MCHC 33.6 (32.0-36.0) g/dL RDW Std Deviation 45.6 (36.4-46.3) fL RDW Coeff of May 14.0 (11.5-14.5) % Plt Count 268 (130-400) K/uL MPV 10.1 (9.4-12.4) fL Immature Gran % (Auto) 0.2 % Neut % (Auto) 67.2 % Lymph % (Auto) 22.2 % Wise % (Auto) 9.2 % Eos % (Auto) 0.6 % Baso % (Auto) 0.6 % Neut # (Auto) 6.27 (1.40-6.50) K/uL Lymph # (Auto) 2.07 (1.20-3.40) K/uL Wise # (Auto) 0.86 H (0.11-0.59) K/uL Eos # (Auto) 0.06 (0.00-0.50) K/uL Baso # (Auto) 0.06 (0.00-0.20) K/uL Immature Gran # (Auto) 0.02 (0.01-0.20) K/uL D-Dimer 380 (0-500) ug/L FEU Sodium 138 (136-145) mmol/L Potassium 4.1 (3.5-5.1) mmol/L Chloride 105 (98-107) mmol/L Carbon Dioxide 26 (21-32) mmol/L Anion Gap 7 (3-11) BUN 19 (6-23) mg/dl Creatinine 1.03 (0.6-1.2) mg/dl Est Cr Clr Drug Dosing 47.7 ml/min Est GFR ( Amer) 59.9 ml/min Est GFR (Non-Af Amer) 51.7 ml/min BUN/Creatinine Ratio 18.4 (10-20) Glucose 101 H (70-99(Fasting)) mg/dl Calcium 10.3 (8.6-10.3) mg/dl Magnesium 1.8 (1.7-2.4) mg/dl Total Bilirubin 0.9 (0.2-1.0) mg/dl AST 15 (13-39) U/L ALT 11 (7-52) U/L Alkaline Phosphatase 90 (34-104) U/L Troponin I High Sens 11.2 (0-14) pg/ml Total Protein 6.9 (6.0-8.3) gm/dl Albumin 3.9 (3.4-5.0) gm/dl Globulin 3.0 (2.5-4.0) gm/dl Albumin/Globulin Ratio 1.3 (0.9-2) TSH 3.726 (0.300-4.500) uIu/ml Urine Color Dark Yellow Urine Appearance Clear (Clear) Urine pH 5.0 (4.5-7.5) Ur Specific [place] 1.028 (1.000-1.030) Urine Protein Trace H (Negative) Urine Glucose (UA) Negative (Negative) Urine Ketones Negative (Negative) Urine Blood Negative (Negative) Urine Nitrite Negative (Negative) Urine Bilirubin 1+ H (Negative) Urine Urobilinogen Negative (Negative) Ur Leukocyte Esterase Negative (Negative) Urine WBC (Auto) 1-5 (0-5) /hpf Urine RBC (Auto) 0-4 (0-4) /hpf U Hyaline Cast (Auto) 10-30 H (0-5) /lpf U Epithel Cells (Auto) >30 H (0-5) /lpf Urine Bacteria (Auto) Negative (Negative) Urine Crystals Not Reportable Calcium Oxalate Crystal Present A (None Prsent) SARS-CoV-2 (PCR) NEGATIVE (Negative) Influenza Type A (PCR) Negative (Neg) Influenza Type B (PCR) Negative (Neg) RSV (RT-PCR) Negative (Neg) Administered Medications Discontinued Medications Sodium Chloride (Nss) 500 mls @ 999 mls/hr IV .Q31M STA Stop: 10/17/23 13:59 Last Infusion: 10/17/23 15:28 Dose: Infused Documented By: Admin: 10/17/23 14:36 Dose: 999 mls/hr Documented By: SHAAN Metoprolol Tartrate (Metoprolol Tartrate 1 Mg/Ml Vial) 5 mg IV NOW STA Stop: 10/17/23 15:52 Last Admin: 10/17/23 16:14 Dose: 5 mg Documented By: CEK Imaging Data Radiologist's Impression: Chest X-Ray 10/17/23 13:29 XR chest 1V portable HISTORY: Dysrhythmia COMPARISON: Chest 05/15/2022. FINDINGS: The lungs are clear. The heart remains enlarged. Is left-sided dual- chamber pacemaker. No pleural effusions. No pneumothorax. Degenerative changes within the shoulders again noted. IMPRESSION: Stable cardiomegaly. Otherwise, no acute process within the chest. ACT 112: Negative or not required by law. Electronically signed by: Thompson Moses M.D. 10/17/2023 2:03 PM Discharge Plan Visit Data Chief Complaint: Tachycardia Stated Complaint: SINUS TACHYCARDIA ED Provider: Leticia Patrick Discharge Problem: Regular sinus tachycardia Forms Stand Alone Forms: My [facility] [place] [employer] Prescriptions Prescriptions: No Action levothyroxine 75 mcg tablet 75 mcg PO DAILY Qty: 90 3RF triamcinolone acetonide 0.1 % cream 1 applic topical DAILY PRN (Reason: irritation) metoprolol tartrate 25 mg tablet 25 mg PO BID cyanocobalamin (vitamin B-12) 1,000 mcg Tablet 1,000 mcg PO DAILY Eliquis 5 mg tablet 5 mg PO Q12 Patient Comments: had both doses cholecalciferol (vitamin D3) [Vitamin D3] 25 mcg (1,000 unit) tablet 1,000 unit PO BID Referrals Referrals: Mary Pepper MD [Primary Care Provider] -
[2023-10-17 14:08] LABS: Albumin Globulin Ratio 1.3 (0.9-2); Albumin Level 3.9 gm/dl (3.4-5.0); BUN Creatinine Ratio 18.4 (10-20); Bilirubin,Total 0.9 mg/dl (0.2-1.0); Calcium 10.3 mg/dl (8.6-10.3); Creatinine Clr Calc Pharmacy 47.7 ml/min; Est GFR (African American) 59.9 ml/min; Est GFR (Non-African American) 51.7 ml/min; Magnesium 1.8 mg/dl (1.7-2.4); Potassium 4.1 mmol/L (3.5-5.1); Total Protein 6.9 gm/dl (6.0-8.3)
[2023-10-17 14:14] LABS: Troponin I High Sensitivity 11.2 pg/ml (0-14)
[2023-10-17 14:22] LABS: D Dimer 380 ug/L FEU (0-500)
[2023-10-17 14:24] LABS: Thyroid Stimulating Hormone 3.726 uIu/ml (0.300-4.500)
[2023-10-17 15:16] LABS: Appearance Urine Clear (Clear); Bacteria Urine Automated Negative (Negative); Blood Urine Negative (Negative); Color Urine Dark Yellow; Epithelial Cell Urine Auto >30 /lpf (0-5); Glucose Urine UA Negative (Negative); Ketones Urine Negative (Negative); Leukocyte Esterase Urine Negative (Negative); Nitrite Urine Negative (Negative); Protein Urine Trace (Negative); RBC Urine Automated 0-4 /hpf (0-4); Specific Gravity Urine 1.028 (1.000-1.030); Urobilinogen Urine Negative (Negative)
[2023-10-17 15:18] LABS: Bilirubin Urine 1+ (Negative)
[2023-10-17 15:29] LABS: Influenza A virus by PCR Negative (Neg); Influenza B virus by PCR Negative (Neg); RSV by PCR Negative (Neg); SARS CoV2 RNA(COVID-19) Ceph NEGATIVE (Negative)
[2023-10-17 15:36] LABS: Calcium Oxalate Crystals Urine Present (None Prsent)
[2023-10-17] MEDS ORDERED: METOPROLOL TARTRATE 1 MG/ML VIAL IV STA (15:51)
--- NOTE | 2023-10-17 17:29 | History & Physical Report ---
Date of Service October 17, 2023 Assessment & Plan (1) Regular sinus tachycardia: Plan: Sinus tachycardia at 130bpm Patient is asymptomatic, with some mild, ongoing HANNA S/p permanent pacemaker Pacemaker interrogated in the ED D-dimer WNL Troponin WNL Electrolytes and LFTs WNL UA negative COVID, RSV, flu negative No infectious sources; no leukocytosis; afebrile Lyme ordered, pending Lopressor 5 mg IV was given in the ED, but did not significantly lower heart rate Adenosine 6 mg IV was trialed in the ED, and no atrial flutter waves were seen on telemetry ?Atrial tachycardia Cardiology consulted Continuous telemetry monitoring on PCU Caution IV beta-blockers in the setting of potential sinus tachycardia; continue p.o. beta-blockers while patient is asymptomatic Consider IV amiodarone if patient declines A.m. CBC, BMP (2) Pacemaker: Plan: Sinus node dysfunction s/p permanent pacemaker implanted on 06/04/2022 Pacemaker interrogated in the ED Patient was told to come in by her pacemaker company, who noted she was tachycardic in the 130s (3) Hypothyroidism: Plan: TSH WNL (4) Atrial flutter, paroxysmal: Plan: Continue Eliquis, metoprolol Plan Disposition: Admit to PCU telemetry Full code Heart healthy diet VTE PPx: On Eliquis History of Present Illness Chief Complaint: Tachycardia Primary Care Provider: Mary Pepper MD Earline is a pleasant 78-year-old female with PMH of paroxysmal A-fib (on Eliquis), sinus node dysfunction s/p permanent pacemaker implanted on 06/04/2022, insomnia, esophageal dysmotility, IBS, and MAYKEL. She presented for tachycardia x1 week. Patient endorses ongoing HANNA and fatigue, but not CP. She has been checking her heart rate using a pulse oximeter at home, and reports that his been in the 130s bpm range. She reportedly received a call from her pacemaker company stating that her heart rate was elevated, and she cannot get into see her PCP. She has a pacemaker and hx of 2 ablations at [place] d/t A- fib. Her HANNA is mainly going up steps; and has been ongoing for some time; it is not positional, and she does not notice it when lying on her back. She reports she lives a fairly sedentary lifestyle; occasionally she goes to the grocery store. She denies caffeine use. No coffee. No to stimulants. She notes a mild change in diet for the holiday season (). She lives with her . No ambulatory assist devices. Patient denies alcohol use, vaping, no recreational drug use. She quit smoking tobacco cigarettes at 34 years old. She does not monitor her daily water intake; only takes it with her medicine. ED course: NSS 500 mL Metoprolol 5 mg IV ROS: Patient endorses fatigue (ongoing), cold intolerance, HANNA, R knee/hip pain (d/t arthritis). Patient denies fever, sweating, dizziness, lightheadedness, ambulatory dysfunction, CP, SOB, abdominal pain, N/V/D, urinary s/s, burning with urination, blood in the urine/stool, back pain, or numbness/tingling/pain/swelling in legs. No PMHx of MO, DVT/PE, CVA, diabetes, cancer, CHF Family hx of CHF and CVA (father) Trialed adenosine 6mg in the ED, and no atrial flutter waves were seen on telemetry Allergies Allergy/AdvReac Type Severity Reaction Status Date / Time hyoscyamine Allergy Severe Hives Verified 10/17/23 17:54 nabumetone Allergy Severe Hives Verified 10/06/23 10:55 ibuprofen Allergy Intermediate HIVES Verified 10/06/23 10:55 latex Allergy Intermediate Rash Verified 10/06/23 10:55 bacitracin Allergy Unknown Unknown Verified 10/06/23 10:55 bee venom protein (honey bee) Allergy Unknown Unknown Verified 10/06/23 10:55 naproxen [From Aleve] Allergy Unknown . Verified 10/17/23 17:54 polymyxin B Allergy Unknown Unknown Verified 10/06/23 10:55 Home Medications Medication Instructions Recorded Confirmed Type apixaban 5 mg tablet (Eliquis) 5 mg PO Q12 01/09/19 10/17/23 History cyanocobalamin (vitamin B-12) 1,000 mcg PO DAILY 01/09/19 10/17/23 History 1,000 mcg tablet cholecalciferol (vitamin D3) 25 1,000 unit PO BID 10/02/22 10/17/23 History mcg (1,000 unit) tablet (Vitamin D3) levothyroxine 75 mcg tablet 75 mcg PO DAILY #90 tabs 11/07/22 10/17/23 Rx metoprolol tartrate 25 mg tablet 25 mg PO BID 06/30/23 10/17/23 History triamcinolone acetonide 0.1 % 1 applic topical DAILY PRN 06/30/23 10/17/23 History topical cream irritation Past Med/Surg History Medical History A-fib Chronic anticoagulation Colon polyps Diverticulitis Duodenal diverticulum Esophageal dysmotility Family history of colon cancer History of nephrolithiasis Hyperlipidemia Macular degeneration Melanoma of skin Mild cognitive impairment Mitral regurgitation Obstructive sleep apnea Osteitis of symphysis pubis Osteopenia after menopause Pacemaker Thyroid goiter Vitamin B 12 deficiency Vitamin D deficiency Surgical History H/O arthroscopy of right knee H/O cardiac radiofrequency ablation H/O colonoscopy History of breast surgery S/P appendectomy S/P cardiac pacemaker procedure S/P tonsillectomy Status post ablation of atrial fibrillation Family History Mother Afib Colorectal cancer Dementia Father Stroke Afib Grandmother Breast cancer Aunt Breast cancer Denies family history of Ovarian cancer Prostate cancer Myocardial infarction Lung cancer Social History Smoking Status: Never smoker Tobacco Type: Cigarettes Age Started Using Tobacco: 19; Age Quit Using Tobacco: 34; packs per day: 0.5; Second Hand Exposure: No; Do You Dip or Chew Tobacco: No; Hx Alcohol Use: No Hx Substance Use: No Preferred Language: Citizen Of [place] Communication Ability: Effective Visual Impairment: Limited Hearing Ability: Normal [employer] Technician Required: No marital status: Current Living Situation: Spouse current occupational status: retired How many Children do You have: 0 Feels Safe at Home: Yes Childhood Exposure to Second-Hand Smoke: No Diet: regular caffeine: No Dental Care, Regularly: Yes Physical Activity Frequency: Does not Exercise Seatbelt Use: always Sunscreen Use: No Assistive Devices: Glasses Review of Systems Review of Systems: See HPI above Physical Exam Physical Exam: General: Pleasant affect; no acute distress; non-toxic appearing; well- nourished; cooperative HEENT: normocephalic, atraumatic; no scleral icterus; PERRLA w/ EOMs intact; moist mucus membrane; vision and hearing grossly intact Neck: supple; no JVD; no lymphadenopathy; trachea midline Skin: warm, dry without signs of tenting; no cyanosis; no rashes, bruising, lesions, or erythema noted CV: chest wall NTP; RRR; S1/S2 normal; no murmurs/rubs/gallops; pulses intact and symmetric at radial, DP, and PT Lungs: no acute respiratory distress; symmetrical chest wall expansion; clear breath sounds across all lung dominguez w/o adventitious sounds; no wheezing ABD: Soft, NTP; BS present; no rebound/guarding; no ascites; no distention; negative CVA tenderness MSK: no tics or fasciculations; no edema noted in the LEs b/l Neuro: A&Ox3; normal mood and affect; fluent speech; no focal deficits; sensation grossly intact Results & Data Results & Data Vital Signs (Past 12 Hours) Vital Signs Temp Pulse Pulse Resp BP BP Pulse Ox 10/17/23 17:00 123 H 18 114/86 96 10/17/23 16:30 120 H 18 125/83 96 10/17/23 16:20 121 H 15 101/80 98 10/17/23 16:14 114 H 101/80 10/17/23 15:33 121 H 10/17/23 15:00 108 H 18 114/78 98 10/17/23 13:34 131 H 22 124/68 97 10/17/23 13:34 97 10/17/23 12:59 36.3 C L 121 H 20 99/71 L 98 O2 Del Method 10/17/23 17:00 Room Air 10/17/23 16:30 10/17/23 16:20 10/17/23 16:14 10/17/23 15:33 10/17/23 15:00 Room Air 10/17/23 13:34 Room Air 10/17/23 13:34 Room Air 10/17/23 12:59 Room Air Laboratory Results Abnormal lab results 10/17/23 10/17/23 Range/Units 13:35 14:38 [place] # (Auto) 0.86 H (0.11-0.59) K/uL Glucose 101 H (70-99(Fasting)) mg/dl Urine Protein Trace H (Negative) Urine Bilirubin 1+ H (Negative) U Hyaline Cast (Auto) 10-30 H (0-5) /lpf U Epithel Cells (Auto) >30 H (0-5) /lpf Calcium Oxalate Crystal Present A (None Prsent) Diagnostic Findings Chest X-Ray 10/17/23 13:29 XR chest 1V portable HISTORY: Dysrhythmia COMPARISON: Chest 05/15/2022. FINDINGS: The lungs are clear. The heart remains enlarged. Is left-sided dual- chamber pacemaker. No pleural effusions. No pneumothorax. Degenerative changes within the shoulders again noted. IMPRESSION: Stable cardiomegaly. Otherwise, no acute process within the chest. ACT 112: Negative or not required by law. Electronically signed by: Thompson Moses M.D. 10/17/2023 2:03 PM Code Status & VTE Plan Code Status Full code VTE Prophylaxis Plan VTE Prophylaxis will be ordered: Yes Supervising Physician Co-Signing Physician Notes 78yo F hx of afib on apixaban s/p 2x ablations at [place] with 1 week of HR in 130s. Was notified by pacemaker company that she has been with sustained tachycardia, presented to the ER for care. Exertional dyspnea and fatigue. Initially received 500 cc of fluid and IV metoprolol with without improvement while in the ER. EKG shows sinus tachycardia rather than return to A-fib. Last echo 06/2023 with EF 60 to 65%, indeterminate diastolic function. EKG on admission is sinus tachycardia with consistent RI. While in room patient is more irregular and? A-fib. Will repeat EKG. If patient is found to be in A-fib can uptitrate metoprolol to 50 twice daily and add 5 mg every 6 hours for additional. Admitting EKG is consistent with sinus, if repeat redemonstrate sinus then defer rate control treatment and pursue causes of reactive tachycardia. At time of admission she has no infectious symptoms, do not suspect PE as she is compliant with her Eliquis and D-dimer is normal, quad screen is negative, she is not in pain, has no fevers or chills, and does not appear volume depleted or volume overloaded although she does note she had quite a bit of salt over Thanks She does not have a history of heart failure. Echo is pending BNP added, although spite increase salt intake chest x-ray does not show overt pulmonary edema and she has not had leg swelling or weight gain. CTAB, regular and tachycardia -mrg at bedside. If no clear provoking etiology, will consult cardiology for inappropriate sinus tachycardia. She does not have chest pain and high-sensitivity troponin is normal. EKG Is without territorial ST segment changes., Patient does have new T wave inversions in leads II/3 compared to March 2020 she is not in pain. TSH is normal. Calcium is normal. Creatinine and BSG are normal. Denies stimulant, OTC medication use, and caffeine intake.Case was discussed w/ cardiology. Adenosine trial to unmask underlying rhytm --> AT?. Recommended to trial metoprolol as noted. Currently she is hemodynamically stable, will continue workup and agree with assessment and management at this time as above. PG Care Time/CCT Total # of Minutes Spent Total Time Spent with Patient: Total time spent is greater than 50% in coordination of care (as documented) at patient's floor/unit and/or counseling patient: Coding [place] [address] INT INP/OBS CARE 3/75MIN Patient Type Established History Comprehensive Exam Comprehensive Medical Decision Making High Complexity Diagnoses Regular sinus tachycardia R00.0 Pacemaker Z95.0 Hypothyroidism E03.9 Atrial flutter, paroxysmal I48.92
[2023-10-17 18:38] LABS: Lyme Ab IgG w/WB Rflx Negative (Negative); Lyme Ab IgM w/WB Rflx Negative (Negative)
[2023-10-17] MEDS ORDERED: ADENOSINE IV SOLN 3 MG/ML 2 ML VIAL IV ONE (18:58)
[2023-10-17] MEDS ORDERED: ADENOSINE IV SOLN 3 MG/ML 2 ML VIAL IV STA (19:18)
[2023-10-17] MEDS ORDERED: NITROGLYCERIN SL 0.4 MG/TAB TAB SL PRN (22:19)
[2023-10-17] MEDS ORDERED: ACETAMINOPHEN 325 MG TAB PO PRN (22:19)
[2023-10-17] MEDS: METOPROLOL TARTRATE 25 MG TAB PO SCH (23:25)
[2023-10-17] MEDS: APIXABAN 5 MG TABLET PO SCH (23:26)
[2023-10-18] MEDS: LEVOTHYROXINE SODIUM 75 MCG TABLET PO SCH (05:59)
[2023-10-18 06:37] LABS: Basophils # (auto) 0.04 K/uL (0.00-0.20); Basophils % (auto) 0.6 %; Eosinophils # (auto) 0.06 K/uL (0.00-0.50); Eosinophils % (auto) 0.9 %; Hematocrit (blood only) 41.6 % (37.0-47.0); Hemoglobin 14.1 g/dl (12.0-16.0); Immature Granulocytes # (auto) 0.02 K/uL (0.01-0.20); Immature Granulocytes % (auto) 0.3 %; Lymphocytes # (auto) 1.79 K/uL (1.20-3.40); Lymphocytes % (auto) 26.2 %; Mean Corpuscular Hemoglobin 29.9 pg (25.0-34.0); Mean Corpuscular Hgb Conc 33.9 g/dL (32.0-36.0); Mean Corpuscular Volume 88.3 fL (80.0-100.0); Mean Platelet Volume 10.2 fL (9.4-12.4); Monocytes # (auto) 0.69 K/uL (0.11-0.59); Monocytes % (auto) 10.1 %; Neutrophils # (auto) 4.24 K/uL (1.40-6.50); Neutrophils % (auto) 61.9 %; Platelet Count 220 K/uL (130-400); RDW Coefficient of Variation 14.3 % (11.5-14.5); RDW Standard Deviation 46.1 fL (36.4-46.3); Red Blood Count 4.71 M/uL (4.20-5.40); White Blood Count 6.84 K/ul (4.8-10.8)
[2023-10-18 06:45] LABS: Calcium 10.1 mg/dl (8.6-10.3); Creatinine Clr Calc Pharmacy 55.4 ml/min; Est GFR (African American) 70.5 ml/min; Est GFR (Non-African American) 60.8 ml/min; Potassium 4.3 mmol/L (3.5-5.1)
[2023-10-18] MEDS: METOPROLOL TARTRATE 25 MG TAB PO SCH ×5 (07:55→20:48)
[2023-10-18] MEDS: APIXABAN 5 MG TABLET PO SCH ×2 (07:56→20:48)
--- NOTE | 2023-10-18 08:16 | Electrocardiogram Report ---
Test Reason : Blood Pressure : / mmHG Vent. Rate : 130 BPM Atrial Rate : 130 BPM P-R Int : 156 ms QRS Dur : 086 ms QT Int : 308 ms P-R-T Axes : 100 -03 -22 degrees QTc Int : 453 ms Sinus tachycardia vs. atrial tachycardia Possible Old Inferior infarct Old Possible Anterior infarct (cited on or before 09-JAN-2019) Abnormal ECG When compared with ECG of 02-APR-2022 10:38, Premature atrial complexes are no longer Present Vent. rate has increased BY 74 BPM Borderline Criteria for Inferior infarct is now Present Reconfirmed by Yuriy Johnson ([id number]) on 10/18/2023 8:21:25 AM Referred By: REFERRED SELF Confirmed By:Yuriy Johnson
--- NOTE | 2023-10-18 08:21 | Electrocardiogram Report ---
Test Reason : Blood Pressure : / mmHG Vent. Rate : 117 BPM Atrial Rate : 127 BPM P-R Int : 000 ms QRS Dur : 088 ms QT Int : 356 ms P-R-T Axes : 000 -01 -09 degrees QTc Int : 496 ms Sinus tachycardia vs. atrial tachycardia Low voltage QRS Possible Old Inferior infarct (cited on or before 17-OCT-2023) Possible Old Anterior infarct (cited on or before 09-JAN-2019) Abnormal ECG When compared with ECG of 17-OCT-2023 13:22, Current tracing suggests runs of atrial tachycardia (runs of beats with breaks and 2 different p wave morphologies) Confirmed by Yuriy Johnson ([id number]) on 10/18/2023 8:20:54 AM Referred By: REFERRED SELF Confirmed By:Yuriy Johnson
--- NOTE | 2023-10-18 10:54 | Cardiology Consultation ---
Date of Consultation October 18, 2023 Assessment & Plan (1) Paroxysmal atrial tachycardia: As noted, abrupt changes in heart rate are highly suggestive of paroxysmal atrial tachycardia rather than sinus tachycardia. She is doing well with no evidence of heart failure myocardial ischemia and with recent echocardiogram showing normal systolic function and pharmacologic nuclear test showing no infarct or ischemia. Recommend initial trial of beta-blockers, would be aggressive since she has a pacemaker and is not at risk for bradycardia. Increase metoprolol to tartrate to 25 mg every 6 hours with hold orders for SBP less than 95 mmHg (no need for heart rate hold orders). If this is unsuccessful, she notes that flecainide had been recommended by her body painter in [place], will discuss this with our body painter and potentially initiate flecainide tomorrow if necessary. I will not be in the hospital tomorrow, but will ask Dr. Hanson are Dr. Vaughn to check in on the patient and offer further advice regarding rhythm management. (2) Atrial flutter, paroxysmal: She has a prior history of paroxysmal atrial flutter for which she underwent remote ablations. Her [id number] score is at least 3 and she is chronically anticoagulated with apixaban, continue this indefinitely. (3) S/P placement of cardiac pacemaker: Plan Placed for tachybradycardia syndrome when she was having recurrent atrial flutter and pauses due to necessary negative chronotropic agents. History of Present Illness Reason for Consultation: Sinus tach in the 130s; ?atrial tachycardia Requesting Physician: Jrery Noland MD Attending Physician: Jerry Noland MD History of Present Illness 78-year-old woman with history of paroxysmal atrial fibrillation (status post ablation 2017 and again 2020), sinus node dysfunction with dual-chamber pacemaker, no history of CAD, who was admitted with dyspnea on exertion, palpitations and sustained supraventricular tachycardia at 130 bpm. Over the past several weeks she had noted dyspnea during activities that would previously not have prompted symptoms. Using a pulse oximeter she noted that her heart rate was in the 130 bpm range consistently and received a call from [employer]) also reporting persistent tachycardia. She reported to the emergency department where ECG showed what appeared to be sinus tachycardia at 130 bpm. She did not respond to adenosine or low-dose beta-nathalia and remained tachycardic throughout the night. This morning, she notes an awareness of rapid heart rate as well as dyspnea with activity, but denies any significant symptoms at rest. Review of telemetry shows a supraventricular tachycardia with fairly normal- appearing P waves but with periods of abrupt deceleration for a few beats (for example the rate will drop from 130 bpm to 75 bpm for several beats, then abruptly resume at 130 bpm). These abrupt changes in heart rate are strongly suggestive of a paroxysmal atrial tachycardia rather than sinus tachycardia. Allergies Allergy/AdvReac Type Severity Reaction Status Date / Time hyoscyamine Allergy Severe Hives Verified 10/17/23 17:54 nabumetone Allergy Severe Hives Verified 10/06/23 10:55 ibuprofen Allergy Intermediate HIVES Verified 10/06/23 10:55 latex Allergy Intermediate Rash Verified 10/06/23 10:55 bacitracin Allergy Unknown Unknown Verified 10/06/23 10:55 bee venom protein (honey bee) Allergy Unknown Unknown Verified 10/06/23 10:55 naproxen [From Aleve] Allergy Unknown . Verified 10/17/23 17:54 polymyxin B Allergy Unknown Unknown Verified 10/06/23 10:55 Home Medications Medication Instructions Recorded Confirmed Type apixaban 5 mg tablet (Eliquis) 5 mg PO Q12 01/09/19 10/17/23 History cyanocobalamin (vitamin B-12) 1,000 mcg PO DAILY 01/09/19 10/17/23 History 1,000 mcg tablet cholecalciferol (vitamin D3) 25 1,000 unit PO BID 10/02/22 10/17/23 History mcg (1,000 unit) tablet (Vitamin D3) levothyroxine 75 mcg tablet 75 mcg PO DAILY #90 tabs 11/07/22 10/17/23 Rx metoprolol tartrate 25 mg tablet 25 mg PO BID 06/30/23 10/17/23 History triamcinolone acetonide 0.1 % 1 applic topical DAILY PRN 06/30/23 10/17/23 History topical cream irritation Patient History Medical History Osteitis of symphysis pubis Pacemaker Melanoma of skin Duodenal diverticulum Esophageal dysmotility Family history of colon cancer Colon polyps History of nephrolithiasis Chronic anticoagulation Osteopenia after menopause Vitamin D deficiency Vitamin B 12 deficiency Hyperlipidemia Mitral regurgitation Macular degeneration Thyroid goiter Mild cognitive impairment Obstructive sleep apnea A-fib Diverticulitis Surgical History H/O cardiac radiofrequency ablation S/P cardiac pacemaker procedure H/O colonoscopy History of breast surgery breast biopsy - benign S/P tonsillectomy H/O arthroscopy of right knee Status post ablation of atrial fibrillation S/P appendectomy Family History Mother Afib Colorectal cancer Dementia Father , 85 Stroke Afib Grandmother Breast cancer Aunt Breast cancer Denies family history of Ovarian cancer Prostate cancer Myocardial infarction Lung cancer Social History Smoking Status: Former smoker Tobacco Type: Cigarettes Age Started Using Tobacco: 19; Age Quit Using Tobacco: 34; packs per day: 0.5; Cigarettes Per Day: quit age 34 years, less than 1 pack daily; Second Hand Exposure: No; Do You Dip or Chew Tobacco: No; Tobacco Cessation Education Requested by Patient: No Hx Alcohol Use: No Hx Substance Use: No Preferred Language: Georgian Communication Ability: Effective Visual Impairment: Limited Hearing Ability: Normal Rn Hemodialysis Charge Required: No Beliefs That Will Affect Care: None marital status: Current Living Situation: Spouse current occupational status: retired How many Children do You have: 0 Other Information That Helps Us Care for You: No Feels Safe at Home: Yes Safety Concerns: Feels Safe At This Time Childhood Exposure to Second-Hand Smoke: No Diet: regular caffeine: No Dental Care, Regularly: Yes Physical Activity Frequency: Does not Exercise Seatbelt Use: always Sunscreen Use: No Assistive Devices: Cane and Glasses Physical Exam Physical Exam: No distress. BP normotensive. Pulse 120-130 bpm and generally regular. Respirations 18 and unlabored. Skin: no ecchymoses or generalized lesions. HEENT: unremarkable. Neck: JVP at the clavicle at 90 degrees, no carotid bruits. Lungs: clear. Cardiac: Tachycardic/regular rhythm, normal S1-2, no murmur. Abdomen: benign. Extremities: no edema, pulses intact. Neurologic: normal affect and conversation, nonfocal. Results & Data Laboratory Results Normal CBC. Normal electrolytes with potassium 4.3, BUN 18, creatinine 0.9. Magnesium 1.8. Calcium 10.1. Troponin 11.2 Diagnostic Findings Initial ECG showed sinus tachycardia versus atrial tachycardia 130 bpm, possible old inferior infarct possible old anterior infarct (PRWP). Compared with 04/02/2022 ECG, PACs no longer present, ventricular rate increased by 74 bpm, borderline criteria for inferior infarct now present. A second ECG showed sinus tachycardia versus atrial tachycardia 117 bpm with possible old anterior and inferior infarcts and was largely unchanged, but did show periods of brief slowing of the heart rate to 75 bpm for a single beat before resuming tachycardia. An echocardiogram from 07/09/2023 showed normal LV size and systolic function (EF 60 to 65%), mild MR/TR/trace PI, borderline pulmonary hypertension. Pharmacologic nuclear stress study 08/27/2023 showed no evidence of ischemia or infarct. PG Care Time/CCT Total # of Minutes Spent Total Time Spent with Patient: Total time spent is greater than 50% in coordination of care (as documented) at patient's floor/unit and/or counseling patient: Coding Level of Care Code 86555 IN/OBS CONSULT LVL 4,60M Diagnoses Paroxysmal atrial tachycardia I47.19 Atrial flutter, paroxysmal I48.92 S/P placement of cardiac pacemaker Z95.0
[2023-10-18] MEDS ORDERED: Nursing to Pharmacy Communication SCH ×3 (11:45→13:45)
--- NOTE | 2023-10-18 11:45 | Hospitalist Progress Note ---
Date of Service October 18, 2023 Assessment & Plan (1) Paroxysmal atrial tachycardia: Plan: Erroneously thought to be sinus tachycardia patient has pacemaker, which was interrogated Cardiology on consult Recommend Metoprolol tartarate 25mg Q 6h Also evaluation by applications analyst Obtain ECHO only when the HR is under better control (2) Pacemaker: Plan: Sinus node dysfunction s/p permanent pacemaker implanted on 06/04/2022 Pacemaker interrogated in the ED Patient was told to come in by her pacemaker company, who noted she was tachycardic in the 130s (3) Hypothyroidism: Plan: TSH WNL (4) Atrial flutter, paroxysmal: Plan: Continue Eliquis, metoprolol (5) S/P placement of cardiac pacemaker: (6) Regular sinus tachycardia: Plan Disposition: Admit to PCU telemetry Full code Heart healthy diet VTE PPx: On Eliquis Admission and Anticipated Discharge Date Admission Date: October 17, 2023 Subjective patient seen and examined, was asked to come to the hospital on account of abnormal heart rhythm Review of Systems Review of Systems: All systems reviewed are negative, apart from the ones contained in the history. Physical Exam Physical Exam: The patient is awake, alert and oriented 3, well developed and well nourished, normocephalic and atraumatic, lying in bed and in no acute distress. HEENT--PERRL, EOMI, mucous membranes and oropharynx mildly dry Neck--supple. No JVD. No bruits. Thyroid normal, trachea midline, no adenopathy. Heart--normal S1 and S2. No murmurs, rubs or gallops. Lungs--clear bilaterally, no respiratory distress, no accessory muscle use. Abdomen--normal bowel sounds and soft. Mild epigastric and left sided abdominal pain Extremities--no cyanosis or clubbing. No edema. Dermatologic--normal skin turgor, normal color, no abnormal lymph nodes, no rash. Neurologic--cranial nerves II through XII grossly intact. Rheumatologic--normal range of motion. Psychiatric--normal affect. Results & Data Results & Data Vital Signs (Past 12 Hours) Vital Signs Temp Pulse Pulse Resp BP Pulse Ox O2 Del Method 10/18/23 09:17 107 H 10/18/23 08:23 97.9 F 61 18 98 Room Air 10/18/23 07:52 133 H 107/74 10/18/23 07:46 Room Air 10/18/23 05:50 107 H 10/18/23 05:50 107 H 10/18/23 04:00 97.5 F L 131 H 16 109/75 96 Room Air 10/18/23 00:00 97.5 F L 128 H 16 112/77 100 Room Air PG Care Time/CCT Total # of Minutes Spent Total Time Spent with Patient: Total time spent is greater than 50% in coordination of care (as documented) at patient's floor/unit and/or counseling patient: Coding Level of Care Code 97695 SUB INP/OBS CARE 2/35MIN Diagnoses Paroxysmal atrial tachycardia I47.19 Pacemaker Z95.0 Hypothyroidism E03.9 Atrial flutter, paroxysmal I48.92 S/P placement of cardiac pacemaker Z95.0 Regular sinus tachycardia R00.0 Time Spent (min) 35
[2023-10-18] MEDS: CYANOCOBALAMIN (B-12) 500 MCG TABLET PO SCH (13:39)
[2023-10-18] MEDS ORDERED: METOPROLOL TARTRATE 25 MG TAB PO SCH (14:00)
[2023-10-18] MEDS: CHOLECALCIFEROL 1,000 UNITS 25 MCG TAB PO SCH (15:12)
[2023-10-18] MEDS ORDERED: CHOLECALCIFEROL 1,000 UNITS 25 MCG TAB PO SCH (21:00)
[2023-10-19] MEDS: METOPROLOL TARTRATE 25 MG TAB PO SCH ×3 (02:23→20:02)
[2023-10-19] MEDS: LEVOTHYROXINE SODIUM 75 MCG TABLET PO SCH (06:31)
[2023-10-19 07:31] LABS: Basophils # (auto) 0.06 K/uL (0.00-0.20); Basophils % (auto) 0.8 %; Eosinophils # (auto) 0.08 K/uL (0.00-0.50); Eosinophils % (auto) 1.1 %; Hematocrit (blood only) 42.1 % (37.0-47.0); Hemoglobin 14.1 g/dl (12.0-16.0); Immature Granulocytes % (auto) 0.1 %; Lymphocytes # (auto) 2.34 K/uL (1.20-3.40); Lymphocytes % (auto) 33.1 %; Mean Corpuscular Hemoglobin 29.7 pg (25.0-34.0); Mean Corpuscular Hgb Conc 33.5 g/dL (32.0-36.0); Mean Corpuscular Volume 88.6 fL (80.0-100.0); Mean Platelet Volume 10.3 fL (9.4-12.4); Monocytes % (auto) 9.9 %; Neutrophils # (auto) 3.87 K/uL (1.40-6.50); Platelet Count 233 K/uL (130-400); RDW Coefficient of Variation 14.3 % (11.5-14.5); RDW Standard Deviation 46.3 fL (36.4-46.3); Red Blood Count 4.75 M/uL (4.20-5.40); White Blood Count 7.06 K/ul (4.8-10.8)
[2023-10-19 07:32] LABS: Immature Granulocytes # (auto) 0.01 K/uL (0.01-0.20)
[2023-10-19 07:57] LABS: BUN Creatinine Ratio 19.5 (10-20); Creatinine Clr Calc Pharmacy 56.7 ml/min; Est GFR (African American) 73.4 ml/min; Est GFR (Non-African American) 63.4 ml/min; Potassium 4.4 mmol/L (3.5-5.1)
[2023-10-19] MEDS: APIXABAN 5 MG TABLET PO SCH ×2 (08:03→20:02)
[2023-10-19] MEDS: CYANOCOBALAMIN (B-12) 500 MCG TABLET PO SCH (08:04)
[2023-10-19] MEDS: CHOLECALCIFEROL 1,000 UNITS 25 MCG TAB PO SCH (08:04)
[2023-10-19] MEDS ORDERED: CHOLECALCIFEROL 1,000 UNITS 25 MCG TAB PO SCH (09:00)
[2023-10-19] MEDS: DOCUSATE SODIUM 100 MG CAP PO SCH ×2 (11:03→20:05)
--- NOTE | 2023-10-19 17:28 | Cardiology Progress Note ---
Date of Service October 19, 2023 Assessment & Plan (1) Atrial flutter, paroxysmal: Plan: Interrogation of device revealed what initially appeared to be either an ectopic atrial tachycardia or sinus tachycardia. However with program stimulation and ramp atrial pacing we were able to terminate the arrhythmia suggesting this was reentrant in nature. Likely a slow atypical flutter. Patient will continue on systemic anticoagulation. We will keep her in the hospital to initiate sotalol. (2) S/P placement of cardiac pacemaker: Admission and Anticipated Discharge Date Admission Date: October 17, 2023 Subjective This afternoon the patient was feeling well. She denies dizziness or lightheadedness. No sense of palpitation. No chest pain. No breathing difficulty. Review of Systems Review of Systems: Per HPI Physical Exam Physical Exam: She is alert and oriented x3. Mood affect appear normal. She answered all questions appropriately. HEENT: Sclerae are anicteric. Pupils are equal and reactive to light and accommodation. Extraocular movements were intact. Neuro: Cranial nerves intact Lungs: Lungs are clear to auscultation bilaterally. There are no rales wheezes or rhonchi. She has normal respiratory effort without use of accessory muscles. There is normal pulmonary excursion. Cardiac: The rhythm was regular. Tachycardic. S1 and S2 were normal. There are no murmurs on examination. The PMI was not markedly displaced on palpation. Extremities: Patient has bilateral radial pulses that are equal in intensity. There is no evidence cyanosis or clubbing. There was no evidence of significant peripheral edema bilaterally. Skin: There are no rashes noted on examination today. Results & Data Vital Signs (Past 12 Hours) Vital Signs Temp Pulse Resp BP BP Pulse Ox O2 Del Method 10/19/23 15:36 36.5 C 67 18 104/66 97 Room Air 10/19/23 14:06 72 94/55 L 10/19/23 11:49 36.5 C 70 18 95/61 L 96 Room Air 10/19/23 07:59 36.3 C L 132 H 19 97/68 L 96 Room Air Laboratory Results Abnormal Lab Results 10/19/23 10/19/23 07:03 11:20 WBC 7.06 RBC 4.75 Hgb 14.1 Hct 42.1 MCV 88.6 MCH 29.7 MCHC 33.5 RDW Std Deviation 46.3 RDW Coeff of May 14.3 Plt Count 233 MPV 10.3 Immature Gran % (Auto) 0.1 Neut % (Auto) 55.0 Lymph % (Auto) 33.1 Brooke % (Auto) 9.9 Eos % (Auto) 1.1 Baso % (Auto) 0.8 Neut # (Auto) 3.87 Lymph # (Auto) 2.34 Brooke # (Auto) 0.70 H Eos # (Auto) 0.08 Baso # (Auto) 0.06 Immature Gran # (Auto) 0.01 Sodium 136 Potassium 4.4 Chloride 107 Carbon Dioxide 25 Anion Gap 4 BUN 17 Creatinine 0.87 Est Cr Clr Drug Dosing 56.7 Est GFR ( Amer) 73.4 Est GFR (Non-Af Amer) 63.4 BUN/Creatinine Ratio 19.5 Glucose 96 Calcium 10.0 Free T4 1.33 Free T3 2.33 Diagnostic Findings Complete device interrogation was performed over dual-chamber permanent pacemaker. Once the arrhythmia was terminated with ramp pacing of the atrium, there was no intrinsic atrial activity. However the atrial ventricular leads function normally. PG Care Time/CCT Total # of Minutes Spent Total Time Spent with Patient: Total time spent is greater than 50% in coordination of care (as documented) at patient's floor/unit and/or counseling patient: Coding Level of Care Code 07211 SUB INP/OBS CARE 2/35MIN Diagnoses Atrial flutter, paroxysmal I48.92 S/P placement of cardiac pacemaker Z95.0 CPT Codes Dual Lead Pacemaker System - [id number] ([id number])
--- NOTE | 2023-10-19 19:02 | Hospitalist Progress Note ---
Date of Service October 19, 2023 Assessment & Plan (1) Paroxysmal atrial tachycardia: Plan: Telemetry. Cardiology consultation and recommendations appreciated. PPM has been interrogated. Sotalol has been started. Free T3 and free T4 levels are normal. (2) Pacemaker: Plan: History of sinus node dysfunction, s/p permanent pacemaker implanted on 06/04/2022. Pacemaker interrogation completed. Telemetry (3) Hypothyroidism: Plan: Stable. Continue Synthroid replacement. Free T3 and free T4 levels are normal (4) Atrial flutter, paroxysmal: Plan: Continue Eliquis. Now on sotalol Plan She will need to be remain hospitalized on telemetry during initiation of sotalol. Hopefully home in 2 days. Admission and Anticipated Discharge Date Admission Date: October 17, 2023 Subjective Alert and oriented. Pleasant. Case discussed with cardiology. She is now on sotalol and will need to remain hospitalized for the next 2 days. Free T3 and free T4 levels are normal. Review of Systems 2 Review of Systems: Constitutional-no fever or chills ENT-no blurred vision, no double vision, no epistaxis, no sore throat Respiratory-no cough, no wheezing, no shortness of breath Cardiac-no palpitations, no chest pain, no syncope GI-no nausea, vomiting, diarrhea, melena, hematochezia -no urinary retention, no urinary incontinence, no dysuria, no hematuria Musculoskeletal-no joint pain, no muscle tenderness Skin-no bruising, no rashes, no pruritus Neuro-no isolated weakness, no paresthesia, no weakness Psych-no depression, no anxiety Physical Exam 2 Physical Exam: General-alert and oriented x3, no fevers, no chills HEENT-head atraumatic and normocephalic, pupils equal and reactive to light, extraocular muscles intact Neck-no lymphadenopathy or thyromegaly, trachea midline Chest-clear to auscultation percussion. No rales, wheezing or rhonchi Cardiac-regular rate and rhythm, normal S1 and S2 Abdomen-normal bowel sounds, nontender, no hepatosplenomegaly Extremities-no cyanosis, clubbing, or edema Neuro-cranial nerves II through XII intact, motor and sensory function within normal limits, strength symmetrical, no focal deficits Psych-normal affect, normal mood Results & Data Results & Data Vital Signs (Past 12 Hours) Vital Signs Temp Pulse Resp BP BP Pulse Ox O2 Del Method 10/19/23 15:36 36.5 C 67 18 104/66 97 Room Air 10/19/23 14:06 72 94/55 L 10/19/23 11:49 36.5 C 70 18 95/61 L 96 Room Air 10/19/23 07:59 36.3 C L 132 H 19 97/68 L 96 Room Air Laboratory Results 10/19/23 07:03 10/19/23 07:03 PG Care Time/CCT Total # of Minutes Spent Total Time Spent with Patient: Total time spent is greater than 50% in coordination of care (as documented) at patient's floor/unit and/or counseling patient: Coding Level of Care Code 96311 SUB INP/OBS CARE 3/50MIN Diagnoses Paroxysmal atrial tachycardia I47.19 Pacemaker Z95.0 Hypothyroidism E03.9 Atrial flutter, paroxysmal I48.92
--- NOTE | 2023-10-19 19:39 | Electrocardiogram Report ---
Test Reason : Blood Pressure : / mmHG Vent. Rate : 119 BPM Atrial Rate : 119 BPM P-R Int : 174 ms QRS Dur : 104 ms QT Int : 358 ms P-R-T Axes : 070 004 178 degrees QTc Int : 503 ms Atrial-sensed ventricular-paced rhythm Abnormal ECG When compared with ECG of 17-OCT-2023 17:59, Electronic ventricular pacemaker has replaced Sinus rhythm Confirmed by Jero Vaughn ([id number]) on 10/19/2023 7:38:24 PM Referred By: REFERRED SELF Confirmed By:Avinash Vaughn
--- NOTE | 2023-10-19 19:43 | Electrocardiogram Report ---
Test Reason : Blood Pressure : / mmHG Vent. Rate : 075 BPM Atrial Rate : 075 BPM P-R Int : 242 ms QRS Dur : 086 ms QT Int : 400 ms P-R-T Axes : 085 006 014 degrees QTc Int : 446 ms Atrial-paced rhythm with prolonged AV conduction with Premature atrial complexes Low voltage QRS Abnormal ECG When compared with ECG of 17-OCT-2023 19:01, (unconfirmed) Electronic atrial pacemaker has replaced Electronic ventricular pacemaker Vent. rate has decreased BY 44 BPM Confirmed by Jero Vaughn ([id number]) on 10/19/2023 7:43:04 PM Referred By: REFERRED SELF Confirmed By:Avinash Vaughn
[2023-10-19] MEDS: SOTALOL HCL 80 MG TAB PO SCH (20:05)
[2023-10-20 05:44] LABS: Basophils # (auto) 0.05 K/uL (0.00-0.20); Basophils % (auto) 0.8 %; Eosinophils # (auto) 0.12 K/uL (0.00-0.50); Eosinophils % (auto) 1.9 %; Hematocrit (blood only) 38.6 % (37.0-47.0); Hemoglobin 13.1 g/dl (12.0-16.0); Immature Granulocytes # (auto) 0.01 K/uL (0.01-0.20); Immature Granulocytes % (auto) 0.2 %; Lymphocytes # (auto) 1.92 K/uL (1.20-3.40); Lymphocytes % (auto) 30.8 %; Mean Corpuscular Hemoglobin 29.7 pg (25.0-34.0); Mean Corpuscular Hgb Conc 33.9 g/dL (32.0-36.0); Mean Corpuscular Volume 87.5 fL (80.0-100.0); Mean Platelet Volume 10.1 fL (9.4-12.4); Monocytes # (auto) 0.65 K/uL (0.11-0.59); Monocytes % (auto) 10.4 %; Neutrophils # (auto) 3.49 K/uL (1.40-6.50); Neutrophils % (auto) 55.9 %; Platelet Count 200 K/uL (130-400); RDW Coefficient of Variation 14.3 % (11.5-14.5); Red Blood Count 4.41 M/uL (4.20-5.40); White Blood Count 6.24 K/ul (4.8-10.8)
[2023-10-20 06:01] LABS: BUN Creatinine Ratio 23.9 (10-20); Calcium 9.3 mg/dl (8.6-10.3); Creatinine Clr Calc Pharmacy 53.6 ml/min; Est GFR (African American) 68.6 ml/min; Est GFR (Non-African American) 59.2 ml/min; Potassium 4.3 mmol/L (3.5-5.1)
[2023-10-20] MEDS: LEVOTHYROXINE SODIUM 75 MCG TABLET PO SCH (06:50)
[2023-10-20] MEDS: CYANOCOBALAMIN (B-12) 500 MCG TABLET PO SCH (09:18)
[2023-10-20] MEDS: SOTALOL HCL 80 MG TAB PO SCH ×2 (09:18→20:35)
[2023-10-20] MEDS: APIXABAN 5 MG TABLET PO SCH ×2 (09:18→20:35)
[2023-10-20] MEDS: CHOLECALCIFEROL 1,000 UNITS 25 MCG TAB PO SCH (09:18)
[2023-10-20] MEDS: METOPROLOL TARTRATE 25 MG TAB PO SCH (09:21)
--- NOTE | 2023-10-20 14:30 | Electrocardiogram Report ---
Test Reason : Blood Pressure : / mmHG Vent. Rate : 070 BPM Atrial Rate : 070 BPM P-R Int : 250 ms QRS Dur : 088 ms QT Int : 396 ms P-R-T Axes : 088 -04 006 degrees QTc Int : 428 ms Atrial-paced rhythm with prolonged AV conduction Low voltage QRS Abnormal ECG When compared with ECG of 19-OCT-2023 11:11, Premature atrial complexes are no longer Present Confirmed by Jero Vaughn ([id number]) on 10/20/2023 2:29:49 PM Referred By: REFERRED SELF Confirmed By:Avinash Vaughn
--- NOTE | 2023-10-20 15:39 | Hospitalist Progress Note ---
Date of Service October 20, 2023 Assessment & Plan (1) Paroxysmal atrial tachycardia: Plan: Telemetry. Cardiology consultation and recommendations appreciated. PPM has been interrogated. Sotalol has been started. Metoprolol has been discontinued. Free T3 and free T4 levels are normal. (2) Pacemaker: Plan: History of sinus node dysfunction, s/p permanent pacemaker implanted on 06/04/2022. Pacemaker interrogation completed. Telemetry (3) Hypothyroidism: Plan: Stable. Continue Synthroid replacement. Free T3 and free T4 levels are normal (4) Atrial flutter, paroxysmal: Plan: Continue Eliquis. Now on sotalol Plan Hopefully home tomorrow, October 21 Admission and Anticipated Discharge Date Admission Date: October 17, 2023 Subjective Alert and oriented. No complaints. Blood pressure was low this morning but fortunately the patient was asymptomatic. She is now on sotalol and metoprolol has been discontinued. Free T3 and free T4 are normal. Hopefully she can go home tomorrow, October 21. Cardiology consultation and recommendations appreciated Review of Systems 2 Review of Systems: Constitutional-no fever or chills ENT-no blurred vision, no double vision, no epistaxis, no sore throat Respiratory-no cough, no wheezing, no shortness of breath Cardiac-no palpitations, no chest pain, no syncope GI-no nausea, vomiting, diarrhea, melena, hematochezia -no urinary retention, no urinary incontinence, no dysuria, no hematuria Musculoskeletal-no joint pain, no muscle tenderness Skin-no bruising, no rashes, no pruritus Neuro-no isolated weakness, no paresthesia, no weakness Psych-no depression, no anxiety Physical Exam 2 Physical Exam: General-alert and oriented x3, no fevers, no chills HEENT-head atraumatic and normocephalic, pupils equal and reactive to light, extraocular muscles intact Neck-no lymphadenopathy or thyromegaly, trachea midline Chest-clear to auscultation percussion. No rales, wheezing or rhonchi Cardiac-regular rate and rhythm, normal S1 and S2 Abdomen-normal bowel sounds, nontender, no hepatosplenomegaly Extremities-no cyanosis, clubbing, or edema Neuro-cranial nerves II through XII intact, motor and sensory function within normal limits, strength symmetrical, no focal deficits Psych-normal affect, normal mood Results & Data Results & Data Vital Signs (Past 12 Hours) Vital Signs Temp Pulse Resp BP BP BP Pulse Ox 10/20/23 12:37 36.6 C 70 18 96/65 L 100 10/20/23 09:22 72 87/54 L 10/20/23 08:23 36.5 C 70 18 99/66 L 100 10/20/23 03:59 37.6 C H 68 18 101/64 95 O2 Del Method 10/20/23 12:37 Room Air 10/20/23 09:22 10/20/23 08:23 Room Air 10/20/23 03:59 Room Air Laboratory Results 10/20/23 05:29 10/20/23 05:29 PG Care Time/CCT Total # of Minutes Spent Total Time Spent with Patient: Total time spent is greater than 50% in coordination of care (as documented) at patient's floor/unit and/or counseling patient: Coding Level of Care Code 15438 SUB INP/OBS CARE 3/50MIN Diagnoses Paroxysmal atrial tachycardia I47.19 Pacemaker Z95.0 Hypothyroidism E03.9 Atrial flutter, paroxysmal I48.92
--- NOTE | 2023-10-20 16:06 | Cardiology Progress Note ---
Date of Service October 20, 2023 Assessment & Plan (1) Atrial flutter, paroxysmal: Plan: She continues in an atrially paced rhythm. Sotalol had a last evening. Will administer dose this evening in 2 doses tomorrow. Without any notable increase in the QTC she will be discharged on sotalol 80 mg twice daily. Continue systemic anticoagulation. (2) S/P placement of cardiac pacemaker: Admission and Anticipated Discharge Date Admission Date: October 17, 2023 Subjective This morning patient was feeling well. Minimal ambulation, but no specific symptoms associated with getting out of bed. No sense of palpitations. No breathing difficulty. Review of Systems Review of Systems: Per HPI Physical Exam Physical Exam: She is alert and oriented x3. Mood affect appear normal. She answered all questions appropriately. HEENT: Sclerae are anicteric. Pupils are equal and reactive to light and accommodation. Extraocular movements were intact. Neuro: Cranial nerves intact Lungs: Lungs are clear to auscultation bilaterally. There are no rales wheezes or rhonchi. She has normal respiratory effort without use of accessory muscles. There is normal pulmonary excursion. Cardiac: The rhythm was regular. Normal rate. S1 and S2 were normal. There are no murmurs on examination. The PMI was not markedly displaced on palpation. Extremities: Patient has bilateral radial pulses that are equal in intensity. There is no evidence cyanosis or clubbing. There was no evidence of significant peripheral edema bilaterally. Skin: There are no rashes noted on examination today. Results & Data Vital Signs (Past 12 Hours) Vital Signs Temp Pulse Resp BP BP Pulse Ox O2 Del Method 10/20/23 12:37 36.6 C 70 18 96/65 L 100 Room Air 10/20/23 09:22 72 87/54 L 10/20/23 08:23 36.5 C 70 18 99/66 L 100 Room Air PG Care Time/CCT Total # of Minutes Spent Total Time Spent with Patient: Total time spent is greater than 50% in coordination of care (as documented) at patient's floor/unit and/or counseling patient: Coding Level of Care Code 42652 SUB INP/OBS CARE 2/35MIN Diagnoses Atrial flutter, paroxysmal I48.92 S/P placement of cardiac pacemaker Z95.0
[2023-10-20] MEDS: DOCUSATE SODIUM 100 MG CAP PO SCH ×2 (17:56→20:36)
[2023-10-21] MEDS ORDERED: SOTALOL HCL 80 MG TAB PO SCH
[2023-10-21] MEDS: LEVOTHYROXINE SODIUM 75 MCG TABLET PO SCH (06:04)
[2023-10-21] MEDS: CYANOCOBALAMIN (B-12) 500 MCG TABLET PO SCH (08:19)
[2023-10-21] MEDS: SOTALOL HCL 80 MG TAB PO SCH (08:20)
[2023-10-21] MEDS: CHOLECALCIFEROL 1,000 UNITS 25 MCG TAB PO SCH (08:20)
[2023-10-21] MEDS: APIXABAN 5 MG TABLET PO SCH (08:20)
[2023-10-21] MEDS: DOCUSATE SODIUM 100 MG CAP PO SCH (08:22)
--- NOTE | 2023-10-21 11:34 | Electrocardiogram Report ---
Test Reason : Blood Pressure : / mmHG Vent. Rate : 073 BPM Atrial Rate : 073 BPM P-R Int : 254 ms QRS Dur : 086 ms QT Int : 440 ms P-R-T Axes : 069 031 029 degrees QTc Int : 484 ms Atrial-paced rhythm with prolonged AV conduction Abnormal ECG When compared with ECG of 20-OCT-2023 06:47, No significant change was found Confirmed by Jero Vaughn ([id number]) on 10/21/2023 11:33:55 AM Referred By: REFERRED SELF Confirmed By:Avinash Vaughn
[2023-10-21 11:55] VITALS: PULSE 70; RESP 19; TEMP 98.8; O2SAT 99
--- NOTE | 2023-10-21 12:46 | Cardiology Progress Note ---
Date of Service October 21, 2023 Assessment & Plan (1) Atrial flutter, paroxysmal: Plan: She is continuing in a paced atrial rhythm. Doing well with sotalol without any significant prolongation of the QTC. He has had 4 doses of medications so far. Will give her 5th dose this evening and check an EKG around dinner time. If there has been no significant change in the QTC I think she could be safely discharged on sotalol 80 mg every 12 hours. She should continue her apixaban. Metoprolol has been discontinued. (2) S/P placement of cardiac pacemaker: Admission and Anticipated Discharge Date Admission Date: October 17, 2023 Subjective This morning patient was feeling well. She has been ambulatory yesterday but minimally so. No dizziness or lightheadedness. No breathing difficulty. No sense of palpitations. Review of Systems Review of Systems: Per HPI Physical Exam Physical Exam: She is alert and oriented x3. Mood affect appear normal. She answered all questions appropriately. HEENT: Sclerae are anicteric. Pupils are equal and reactive to light and accommodation. Extraocular movements were intact. Neuro: Cranial nerves intact Extremities: There is no evidence cyanosis or clubbing. There was no evidence of significant peripheral edema bilaterally. Skin: There are no rashes noted on examination today. Results & Data Vital Signs (Past 12 Hours) Vital Signs Temp Pulse Pulse Resp BP BP Pulse Ox 10/21/23 11:54 37.1 C 70 19 104/69 99 10/21/23 08:00 75 10/21/23 07:53 36.3 C L 69 18 109/66 98 10/21/23 04:07 36.4 C L 75 18 103/66 97 O2 Del Method 10/21/23 11:54 Room Air 10/21/23 08:00 10/21/23 07:53 Room Air 10/21/23 04:07 Room Air PG Care Time/CCT Total # of Minutes Spent Total Time Spent with Patient: Total time spent is greater than 50% in coordination of care (as documented) at patient's floor/unit and/or counseling patient: Coding Level of Care Code 25934 SUB INP/OBS CARE 2/35MIN Diagnoses Atrial flutter, paroxysmal I48.92 S/P placement of cardiac pacemaker Z95.0
--- NOTE | 2023-10-21 13:00 | Discharge Summary ---
Date of Service October 21, 2023 Admission HPI Per Admitting Provider Earline is a pleasant 78-year-old female with PMH of paroxysmal A-fib (on Eliquis), sinus node dysfunction s/p permanent pacemaker implanted on 06/04/2022, insomnia, esophageal dysmotility, IBS, and MAYKEL. She presented for tachycardia x1 week. Patient endorses ongoing HANNA and fatigue, but not CP. She has been checking her heart rate using a pulse oximeter at home, and reports that his been in the 130s bpm range. She reportedly received a call from her pacemaker company stating that her heart rate was elevated, and she cannot get into see her PCP. She has a pacemaker and hx of 2 ablations at [place] d/t A- fib. Her HANNA is mainly going up steps; and has been ongoing for some time; it is not positional, and she does not notice it when lying on her back. She reports she lives a fairly sedentary lifestyle; occasionally she goes to the grocery store. She denies caffeine use. No coffee. No to stimulants. She notes a mild change in diet for the holiday season (). She lives with her . No ambulatory assist devices. Patient denies alcohol use, vaping, no recreational drug use. She quit smoking tobacco cigarettes at 34 years old. She does not monitor her daily water intake; only takes it with her medicine. ED course: NSS 500 mL Metoprolol 5 mg IV ROS: Patient endorses fatigue (ongoing), cold intolerance, HANNA, R knee/hip pain (d/t arthritis). Patient denies fever, sweating, dizziness, lightheadedness, ambulatory dysfunction, CP, SOB, abdominal pain, N/V/D, urinary s/s, burning with urination, blood in the urine/stool, back pain, or numbness/tingling/pain/swelling in legs. No PMHx of IN, DVT/PE, CVA, diabetes, cancer, CHF Family hx of CHF and CVA (father) Trialed adenosine 6mg in the ED, and no atrial flutter waves were seen on telemetry Principal Diagnosis Recurrent paroxysmal atrial tachycardia Discharge Exam General-alert and oriented x3, no fevers, no chills HEENT-head atraumatic and normocephalic, pupils equal and reactive to light, extraocular muscles intact Neck-no lymphadenopathy or thyromegaly, trachea midline Chest-clear to auscultation percussion. No rales, wheezing or rhonchi Cardiac-regular rate and rhythm, normal S1 and S2 Abdomen-normal bowel sounds, nontender, no hepatosplenomegaly Extremities-no cyanosis, clubbing, or edema Neuro-cranial nerves II through XII intact, motor and sensory function within normal limits, strength symmetrical, no focal deficits Psych-normal affect, normal mood Discharge Data Allergies Allergy/AdvReac Type Severity Reaction Status Date / Time hyoscyamine Allergy Severe Hives Verified 10/17/23 17:54 nabumetone Allergy Severe Hives Verified 10/06/23 10:55 ibuprofen Allergy Intermediate HIVES Verified 10/06/23 10:55 latex Allergy Intermediate Rash Verified 10/06/23 10:55 bacitracin Allergy Unknown Unknown Verified 10/06/23 10:55 bee venom protein (honey bee) Allergy Unknown Unknown Verified 10/06/23 10:55 naproxen [From Aleve] Allergy Unknown . Verified 10/17/23 17:54 polymyxin B Allergy Unknown Unknown Verified 10/06/23 10:55 Consultations 10/17/23 16:54 ED Decision to Admit Stat 10/17/23 19:34 Consult Cardiology Routine Hospital Course (1) Paroxysmal atrial tachycardia: Telemetry. Cardiology consultation and recommendations appreciated. PPM has been interrogated. Sotalol has been started. Metoprolol has been discontinued. Free T3 and free T4 levels are normal. (2) Pacemaker: History of sinus node dysfunction, s/p permanent pacemaker implanted on 06/04/2022. Pacemaker interrogation completed. Telemetry (3) Hypothyroidism: Stable. Continue Synthroid replacement. Free T3 and free T4 levels are normal (4) Atrial flutter, paroxysmal: Continue Eliquis. Now on sotalol Plan Home today, October 21, on sotalol Total Time Total Time Spent Total Time Spent (In Minutes): 40 minutes Discharge Plan Discharge Items Patient Disposition: Home - Self-Care Reason For Visit: TACHYCARDIA Discharge Diagnosis: Recurrent paroxysmal atrial tachycardia Activity: Resume your previous activity Non-emergency contact: Primary Care Provider and Labour Market Economist Call non-emergency contact if: you have any medication questions and your symptoms worsen Follow-up/Referrals: Mary Pepper MD [Primary Care Provider] - Diet: Regular and Heart Healthy Addtl Attending Provider Instructions: Sotalol replaces metoprolol. The dosage is different Pending Studies at Discharge: No Stand-Alone Forms: My [facility], Smoking Cessation Medications and DC Order Prescriptions: New sotalol 80 mg Tablet 80 mg PO BID Qty: 60 0RF Continued levothyroxine 75 mcg tablet 75 mcg PO DAILY Qty: 90 3RF triamcinolone acetonide 0.1 % cream 1 applic topical DAILY PRN (Reason: irritation) cyanocobalamin (vitamin B-12) 1,000 mcg Tablet 1,000 mcg PO DAILY Eliquis 5 mg tablet 5 mg PO Q12 Patient Comments: had both doses cholecalciferol (vitamin D3) [Vitamin D3] 25 mcg (1,000 unit) tablet 1,000 unit PO BID Discontinued metoprolol tartrate 25 mg tablet 25 mg PO BID Discharge Orders: Discharge Order (Routine); Ordered 10/21/23 Ordered By: Benedcit Benjamin Admission Data Admit Date/Time: 10/17/23 18:19 Attending Provider: Benedict Benjamin Admit Provider: Alexander Carvalho Primary Care Provider: Mary Pepper Other Providers: Alexander Carvalho; Yuriy Johnson Coding Level of Care Code 28382 INP/OBS DISCH >30 MIN Diagnoses Paroxysmal atrial tachycardia I47.19 Pacemaker Z95.0 Hypothyroidism E03.9 Atrial flutter, paroxysmal I48.92
[2023-10-21 17:06] VITALS: BP 98/66
== END 2023-10-21 16:45 | disposition home or self-care (01) | DRG 310 ==
LOC: ED 12:57 → 4W 18:19 → SUATTDRO 18:19 → 4W 21:13
DX: I47.19 Other supraventricular tachycardia; I48.0 Paroxysmal atrial fibrillation; Z95.0 Presence of cardiac pacemaker; Z88.8 Allergy status to other drugs, medicaments and biological substances; I49.5 Sick sinus syndrome; K22.4 Dyskinesia of esophagus; Z87.891 Personal history of nicotine dependence; I48.92 Unspecified atrial flutter; Z91.040 Latex allergy status; Z88.6 Allergy status to analgesic agent; K58.9 Irritable bowel syndrome, unspecified; Z79.01 Long term (current) use of anticoagulants; G47.33 Obstructive sleep apnea (adult) (pediatric); G47.00 Insomnia, unspecified; E03.9 Hypothyroidism, unspecified